=== PATIENT | female | born 1945 | race Caucasian/White ===

== ENCOUNTER → 2023-08-15 06:23 | Day surgery (SDC) | payer OTHER, SELFPAY | LOC: GI 06:23 | PROVIDERS: ATTENDING PHYSICIAN Specialist | DX: Z12.11 Encounter for screening for malignant neoplasm of colon (principal); D12.3 Benign neoplasm of transverse colon; K57.30 Diverticulosis of large intestine without perforation or abscess without bleeding; K64.8 Other hemorrhoids; Z86.010 Personal history of colon polyps | CPT/HCPCS: 45385; 88305 ==

== ENCOUNTER 2023-10-24 16:57 | Inpatient (IN) | payer OTHER, SELFPAY ==
[2023-10-24] VITALS (15 sets, daily range): BP systolic 143–188; BP diastolic 81–100; BMI 23.7; BMI 23.1; BMI 24.5
--- NOTE | 2023-10-24 11:36 | ED.GENMED ---
History of Present Illness
General
Chief Complaint: Chest Pain
Time Seen by Provider: 10/24/23 11:34
Travel History
Have you had any contact with someone who has COVID-19?: No
Do you have any symptoms of coronavirus? Fever > 100 degrees, chills, cough, shortness of breath, sore throat, loss of taste or smell, muscle aches, or headache?: No
History of Present Illness
History of Present Illness:
HPI: Patient presents with 'indigestion' ongoing intermittently for the past 4 days. Although the symptoms are not necessarily exertional in nature, at times I do wake her from sleep and it sometimes 'stops me in my tracks' because of the severity.
She states the pain radiates out toward the upper extremities. Her daughter thinks she is on medication for indigestion. She was also placed on some indigestion kind of medication 2 days ago by the PMD. She states that the EKG from the PMD 2
days ago was unremarkable. She had been seeing Dr. Nicole.
EXAM:
GENERAL: Well appearing in no distress
HEENT: Moist oral mucosa
CARDIOVASCULAR: No murmurs, normal heart rate, regular rhythm, No chest wall tenderness
PULMONARY: No respiratory distress, breath sounds are clear and equal
ABDOMEN: Soft with no peritoneal signs, no tenderness
NEUROLOGIC: Excellent strength all extremities, no coordination deficits
PSYCHIATRIC: Appropriate mental status, normal insight and judgement
EXTREMITIES: Nontender, no edema, moves all extremities equally
SKIN: No rash, no lesions
TIME OF INITIAL ENCOUNTER: 12pm
NUMBER AND COMPLEXITY OF PROBLEMS ADDRESSED AT THE ENCOUNTER
� Chronic conditions affecting care: GERD, asthma, rheumatoid arthritis
� Acute Exacerbation and/or Progression of Chronic Illness: This is an acute problem
� Differential Diagnosis includes: GERD, gastritis, esophagitis, ACS
AMOUNT AND/OR COMPLEXITY OF DATA TO BE REVIEWED AND ANALYZED
� I performed an independent evaluation of and my interpretation is:
EKG: Sinus 74, biphasic T waves noted in V2 and there is T wave inversion in aVL, along with subtle ST depression in V4 V5 first-degree AV block�this is somewhat changed in comparison to 07/19/2015
CT:
X-rays: I personally viewed chest x-ray but doubt a true acute pulmonary etiology
Laboratory Studies: CBC normal, chemistries unremarkable, but troponin 0.286
Other:
� Review of other/old records: I reviewed stress nuclear from 04/04/2018 that showed EF of 65% and no evidence for ischemia
� Clinical information was obtained by an independent historian: I spoke to daughter at bedside
� Prescriptions/Medications Considered but not given:
� Further testing considered but not performed:
RISK OF COMPLICATIONS AND/OR MORBIDITY OR MORTALITY OF PATIENT MANAGEMENT
� Social determinants of health affecting care: Lives at home
� Discussion with other providers: Not[facility] Dr[facility] Kevin at 1:20 PM�[facility]23 [facility]
� Escalation of care including admission/observation vs risk of discharge considered: The patient has a slightly abnormal EKG with new ST depression which is subtle. I have placed patient on heparin and aspirin. She currently
is chest pain-free. Cardiology will see in consultation.
Past History
Past History
ED Past Medical History: GERD, HTN, Hypercholesterolemia and Other (Rheumatoid arthritis)
Social History
Tobacco: Non-smoker
Phy Exam
Physical Exam
Physical Exam:
See HPI
Scores
Heart Score for Chest Pain Patients
STEMI patient?: Not applicable
Course
Orders/Labs/Results
Orders:
Orders
10/24/23 11:03
Electrocardiogram (*1) Urgent
Reason for Study: Chest Pain
EKG- Treatment ONCE
10/24/23 12:03
CR Chest - 2 Views Urgent
Comment:
Reason For Exam: cp
10/24/23 12:10
Complete Blood Count/With Diff Urgent
Comprehensive Metabolic Panel Urgent
Lipase Urgent
PTT Urgent
Prothrombin Time Urgent
Troponin I Urgent
10/24/23 13:16
Aspirin 325 mg PO NOW STA
Heparin 4,000 units IV NOW STA
Pharmacy Request to Place See Dose Instructions PO NOW STA
Discontinue all Active Warfarin orders?: Yes
10/24/23 13:[address] Non Medication Order As Directed
Physician Order: PTT 6 hours after initial start of Heparin infusion
10/24/23 13:30
Heparin 10970 Units/250 ml 25,000 units in 250 ml IV PER PROTOCOL
Weight to be used for heparin protocol in kilograms (kg):: 72.7
Protocol:: Cardiac Tx/Acute Coronary
PTT Goal Range to be used:: PTT 73 to 111 seconds
Order type:: Initial
INITIAL Infusion Dose (UNITS/KG/hr) & then follow protocol:: 12 units/kg/hr
Infusion Dose in UNITS/hr & then follow protocol (UNITS/hr):: 850
INFUSION RATE in mL/hr & then follow protocol (mL/hr):: 8.5
PTT less than or equal to 64 seconds:: Increase rate by 200 units/hr (+ 2 mL/hr)
PTT 64.1 to 72.9 seconds:: Increase rate by 100 units/hr (+ 1 mL/hr)
PTT 73 to 111 seconds:: Target Range. No change in rate.
PTT 111.1 to 130.9 seconds:: Decrease rate by 100 units/hr (- 1 mL/hr)
PTT 131 to 199.9 seconds:: HOLD for 1 hr. Then decrease rate by 200 units/hr (- 2 mL/hr)
PTT greater than or equal to 200 seconds:: HOLD for 2 hrs & Notify Provider. Then decrease by 200 units/hr (-
2 mL/hr)
Lab follow-up:: Each change, PTT q6h until 2 consecutive are therapeutic. Then PTT
daily.
Abnormal Lab Results
10/24/23
12:10
Glucose 103 H mg/dl
(70-99)
Troponin I 0.286 H* ng/ml
10/24/23 12:10
10/24/23 12:10
Vital Signs
Initial and Last Documented VS:
Initial Vital Signs
Temp Pulse Resp BP Pulse Ox
98.6 F 85 18 186/98 97
10/24/23 11:01 10/24/23 11:01 10/24/23 11:01 10/24/23 11:01 10/24/23 11:01
Last Documented Vital Signs
Temp Pulse Resp BP Pulse Ox
98.6 F 76 19 173/91 97
10/24/23 11:01 10/24/23 13:00 10/24/23 13:00 10/24/23 12:02 10/24/23 11:58
*Critical Care Note
Total Time (30-74mins, 75-104mins- exclusive of procedures): Not Applicable
ED Attending Note
-
Portions of this chart may have been created with voice recognition software.� Occasional wrong word or��sound alike� substitutions may have occurred due to the inherent limitations of voice recognition software.
Discharge Plan
Departure
Patient Disposition: Admit
Date of Disposition: 10/24/23
Time of Disposition: 13:23
Presentation/result/management discussed w/ accepting MD/DO: Hospitalist
Discharge Problem:
ACS (acute coronary syndrome)
Prescriptions:
No Action
ibuprofen 200 MG tablet
200 mg PO BIDPRN PRN (Reason: mild pain)
hydroxychloroquine 200 MG tablet
200 mg PO DAILY
cinnamon bark [Cinnamon] 500 MG capsule
1,000 mg PO DAILY
[place]-3 Plus Vitamin D3 1 EACH capsule,delayed release(DR/EC)
2,000 mg PO BID
Curcumin
750 mg PO DAILY
Silver Hydrosol
1 cap PO DAILY
metoprolol succinate [Toprol XL] 50 mg Tablet Extended Release 24 Hr
50 mg PO DAILY
famotidine [Pepcid] 20 mg Tablet
20 mg PO BID
omeprazole 20 mg Tablet,Delayed Release (Dr/Ec)
20 mg PO DAILY
simvastatin 20 MG tablet
20 mg PO DAILY
Referrals:
Cecille Sampson DO [Family Provider] -
Interventions
Interventions:
*Risk Screen - Suicide Last Done: 10/24/23 11:01
*General Assessment Last Done: 10/24/23 11:01
*Neglect/Abuse Screening Last Done: 10/24/23 11:01
ED- Fall Risk Assessment Last Done: 10/24/23 11:58
*ED COVID-19 Vaccine History Last Done: 10/24/23 11:01
ED- Cardiac Assessment Last Done: 10/24/23 11:58
Discharge Date and Time
Print Language: SPANISH
[2023-10-24 12:24] LABS: % Basophils 0.8 % (0-2); % Eosinophils 2.3 % (0-6); % Immature Granulocytes 0.2 % (0-0.5); % Lymphocytes 30.9 % (20.5-51.1); % Monocytes 8.7 % (1.7-9.3); % Neutrophils 57.1 % (42.2-75.2); Absolute Basophils 0.1 10^3/uL (0-0.2); Absolute Eosinophils 0.2 10^3/uL (0-0.7); Absolute Monocytes 0.6 10^3/uL (0.1-0.6); Absolute Neutrophils 3.7 10^3/uL (1.4-6.5); Hemoglobin 14.6 g/dL (12.0-16.0); Mean Corpuscular Hgb 29.7 pg (27.0-31.0); Mean Corpuscular Volume 87.6 fL (81.0-99.0); Mean Platelet Volume 10.4 fL (7.4-10.4); Nucleated Red Blood Cells % 0 %; Platelet Count 207 10^3/uL (130-400); Red Blood Cell Count 4.91 10^6/uL (4.20-5.40); Red Cell Dist. Width 14.3 % (11.5-14.5); White Blood Cell Count 6.4 10^3/uL (4.8-10.8)
[2023-10-24 12:44] LABS: ALT (SGPT) 30 U/L (0-35); AST (SGOT) 36 U/L (14-36); Albumin 3.8 g/dl (3.5-5.0); Alkaline Phosphatase 71 U/L (38-126); Blood Urea Nitrogen 14 mg/dl (7-17); Calcium 9.7 mg/dl (8.4-10.2); Carbon Dioxide 29 mmol/L (22-30); Chloride 105 mmol/L (98-107); Estimated Creatinine Clearance 78 ml/min; Glucose 103 mg/dl (70-99); Lipase 205 U/L (23-300); Potassium 4.1 mmol/L (3.5-5.1); Sodium 136 mmol/L (135-145); Total Bilirubin 0.3 mg/dl (0.2-1.3); Total Protein 7.1 g/dl (6.3-8.2); eGFR > 60.00
[2023-10-24 13:14] LABS: Troponin I 0.286 ng/ml
[2023-10-24] MEDS: ASPIRIN 325 MG PO (13:36)
[2023-10-24] MEDS: HEPARIN 4000 UNITS IV (13:39)
[2023-10-24] MEDS: HEPARIN 25000 UNITS/250 ML IV (13:41)
[2023-10-24 13:47] LABS: INR 0.99; PT 13.1 Sec (11.4-14.6)
[2023-10-24 13:49] LABS: APTT 27.3 Sec (23.4-35.0)
--- NOTE | 2023-10-24 14:37 | CON.CAR ---
Addendum entered and electronically signed by Leoncio Kevin MD 10/24/23 15:37:
I saw and examined the patient.
The [employer]'s note was reviewed and I agree with the note.
Comment: 78 y/o female with palpitations/PAC's, GERD, asthma, dyslipidemia, RA who is here for evaluation of chest discomfort. Stress echo 2016 felt to have mild CAD, but then nuclear stress test 2018 showed no significant abnormality. She is here
with typical anginal symptoms and elevated troponin consistent with NSTEMI.
-Aspirin, heparin drip, high intensity statin, blood pressure control, TTE
Original Note:
Consultation
Consultation Request
Date/Time Consultation Requested: 10/24/23 1323
Date/Time Consultation Performed: 10/24/23 1430
Requesting Provider: Dr. Stapleton
Performing Provider: Caroline OCHOA for Dr. Kevin
Reason for Consultation: Chest discomfort, abnormal troponin
Medical History
-
Chief Complaint: chest discomfort
History of Present Illness:
78 y/o female with palpitations/PAC's, GERD, asthma, dyslipidemia, RA who is here for evaluation of chest discomfort. Stress echo 2016 felt to have mild CAD, but then nuclear stress test 2018 showed no significant abnormality. She has noted
midsternal chest tightness intermittently since Saturday. It seems random and usually lasts < 1 minute and is associated with SOB. This Am, she went for a walk and it became severe and she had to stop. This was around 11 AM. She came into the ER and
is seen to have abnormal troponin 0.286 and EKG with mild ST abnormalities anteriorly. No CP at the time of my assessment. She has received ASA and is on heparin drip. She saw her primary provider earlier this week and was started on BID pepcid,
which did not help.
Past Medical History
Past Medical History: Arrhythmias, Asthma, GERD, Hypercholesterolemia and Other (RA)
Social History
Tobacco: Former Smoker (quit 1975)
Alcohol: Occasional
Family History
Family History: Reviewed & Not Pertinent
Allergies / Home Medications
Allergy/AdvReac Type Severity Reaction Status Date / Time
mold Allergy Shortness Uncoded 10/24/23 11:03
of Breath
�Medication �Instructions �Recorded �Confirmed �Type
Curcumin 750 mg PO DAILY 07/25/15 10/24/23 History
Silver Hydrosol 1 cap PO DAILY 07/25/15 10/24/23 History
cinnamon bark 500 mg capsule 1,000 mg PO DAILY 07/25/15 10/24/23 History
(Cinnamon)
hydroxychloroquine 200 mg tablet 200 mg PO DAILY 07/25/15 10/24/23 History
ibuprofen 200 mg tablet 200 mg PO BIDPRN PRN mild pain 07/25/15 10/24/23 History
omega-3 150 as-owo-ise-fish oil 2,000 mg PO BID 07/25/15 10/24/23 History
500 mg-D3 200 unit capsule,delayed
rel ([place]-3 Plus Vitamin D3)
simvastatin 20 mg tablet 20 mg PO DAILY 07/25/15 10/24/23 History
famotidine 20 mg tablet (Pepcid) 20 mg PO BID 10/24/23 10/24/23 History
metoprolol succinate 50 mg 50 mg PO DAILY 10/24/23 10/24/23 History
tablet,extended release 24 hr
(Toprol XL)
omeprazole 20 mg tablet,delayed 20 mg PO DAILY 10/24/23 10/24/23 History
release
Review of Systems
-
History Source: Patient
All other systems: Negative unless noted
Respiratory: Trouble Breathing
Cardiac: Chest Pain
Physical Exam
Vital Signs
Temp Pulse Resp BP Pulse Ox
98.6 F 76 19 173/91 97
10/24/23 11:01 10/24/23 13:00 10/24/23 13:00 10/24/23 12:02 10/24/23 11:58
Lab Results
10/24/23 12:10
10/24/23 12:10
Troponin I 0.286 ng/ml H* 10/24/23 12:10
Physical Exam
General: Well Developed, Well Nourished and No Apparent Distress
HEENT: Normocephalic and Anicteric
Respiratory: Clear and Non Labored Respirations
Cardiac: Regular Rhythm
Skin: Warm and Dry
Neuro: AO x 3
Psych: Calm
Impression / Plan
-
NSTEMI:
-ASA, heparin drip- continue- this requires intensive monitoring for toxicity
-trend trops, EKG's
-check echo
-will give her metoprolol now as she did not yet take this AM (per patient)
-cardiac cath tomorrow
-high intensity statin
-check lipids, hgbA1C
HLD:
-check lipids
-high intensity statin
Palpitations/PAC's:
-continue metoprolol
-follow tele
Rheumatoid arthritis:
-on medical therapy
GERD:
-on H2 josette
Data Reviewed
-
EKG: Tracing Personally Visualized and interpreted (SR at 74 BPM with SR with SA and 1st degree AVB, NS ST and T abnormality)
Radiology: Report Reviewed by me (CXR: On the frontal view, there is a small focus of increased opacity projecting over the lateral aspect of the left lower lung, which appears new since radiograph in 2001. )
Medical Tests (Nuc Med, Echo etc): Report Reviewed by me (echo 07/05/2015: Normal biventricular size and systolic function without regional wall motion abnormality. Mild mitral regurgitation. Aortic sclerosis without stenosis.)
Labs: Labs Reviewed by me
--- NOTE | 2023-10-24 16:50 | HPS.HSE ---
Family Physician
-
Family Physician: Cecille Sampson
Chief Complaint
-
Chest pain
History of Present Illness
Patient is 78 years old with medical history of palpitations, GERD, asthma, rheumatoid arthritis who presents with chest discomfort. Patient describes intermittent chest pressure like sensation radiating to the right shoulder and right jaw. She
noticed worsening of symptoms today with walk. She denies any palpitations or syncope. Pressure-like sensation last for about a minute and associated with shortness of breath. Upon presentation to the emergency room patient was found to have
positive troponin at 0.286. Her ECG showed mild ST depressions in anterior leads.
Patient had a evaluation with stress test in 2016 with concern for mild CAD, but following nuclear stress test in 2018 showed no significant abnormalities.
Patient initiated on aspirin and IV heparin drip.
By the time of my examination patient is chest pain-free and remains hemodynamically stable.
Medical History
Past Medical History
Past Medical History: Reports GERD, HTN and Other (RA)
Past Surgical History: Reports None
Social History
Tobacco: Non-smoker
Alcohol: None
Drug: None
Living: With Family
Employment: Retired
Family History
Family History: Not pertinent
Allergies / Home Medications
Allergies reflects when Allergies were last updated in [facility].
Home Medications with original date entered in [facility]
Allergy/Medication List:
Allergies
Allergy/AdvReac Type Severity Reaction Status Date / Time
mold Allergy Shortness Uncoded 10/24/23 11:03
of Breath
Home Medications
Curcumin 750 mg PO DAILY 07/25/15
Silver Hydrosol 1 cap PO DAILY 07/25/15
cinnamon bark 500 mg capsule (Cinnamon) 1,000 mg PO DAILY 07/25/15
hydroxychloroquine 200 mg tablet 200 mg PO DAILY 07/25/15
ibuprofen 200 mg tablet 200 mg PO BIDPRN PRN mild pain 07/25/15
omega-3 150 dz-xvm-fmb-fish oil 500 mg-D3 200 unit capsule,delayed rel ([place]-3 Plus Vitamin D3) 2,000 mg PO BID 07/25/15
simvastatin 20 mg tablet 20 mg PO DAILY 07/25/15
famotidine 20 mg tablet (Pepcid) 20 mg PO BID 10/24/23
metoprolol succinate 50 mg tablet,extended release 24 hr (Toprol XL) 50 mg PO DAILY 10/24/23
omeprazole 20 mg tablet,delayed release 20 mg PO DAILY 10/24/23
Review of Systems
-
A 12 point ROS was completed and negative except as noted: Yes
Cardiac: Reports See HPI
Physical Exam
Vital Signs
Vital Signs
Temp Pulse Resp BP Pulse Ox
98.6 F 71 25 180/97 97
10/24/23 11:01 10/24/23 15:15 10/24/23 15:15 10/24/23 15:00 10/24/23 11:58
Physical Exam
General: Well Developed, Well Nourished and No Apparent Distress
HEENT: NormoCephalic, Moist mucous membranes and Atraumatic
Respiratory: Clear
Cardiac: S1/S2 and Regular Rhythm; No Murmur or Rub
GI: Soft, Non Tender, Non Distended and Normal Bowel Sounds; No Organomegaly
Rectal: Deferred by Provider
Musculoskeletal: No Clubbing, No Cyanosis and No Edema
Skin: No Rash
Neuro: Nonfocal/grossly intact
Laboratory Results
-
10/24/23 12:10
10/24/23 12:10
Laboratory Results
PT 13.1 Sec (11.4-14.6) 10/24/23 12:10
INR 0.99 10/24/23 12:10
APTT 27.3 Sec (23.4-35.0) 10/24/23 12:10
Total Bilirubin 0.3 mg/dl (0.2-1.3) 10/24/23 12:10
AST 36 U/L (14-36) 10/24/23 12:10
ALT 30 U/L (0-35) 10/24/23 12:10
Alkaline Phosphatase 71 U/L (38-126) 10/24/23 12:10
Troponin I 0.286 ng/ml H* 10/24/23 12:10
Lipase 205 U/L (23-300) 10/24/23 12:10
Data Reviewed
-
Lab Data: Labs Reviewed by me
Impression/Plan
-
IMPRESSION:
Presentation with exertional chest pain
Acute coronary syndrome/non-STEMI
Conditions prior to admission:
Hypertension
Dyslipidemia
GERD.
Rheumatoid arthritis
PLAN:
Non-STEMI.
Echocardiogram.
Serial troponins.
Cardiology consultation.
Aspirin.
Statin.
Beta-josette.
Cardiac cath on 10/24
Dyslipidemia
Update lipid profile
Continue statin
Essential hypertension
Monitor blood pressure while on Toprol.
Rheumatoid arthritis.
Continue Plaquenil
GERD continue PPI and H2 josette.
[2023-10-24] MEDS: TOPROL XL 50 MG PO (17:55)
[2023-10-24 18:26] LABS: Troponin I 0.374 ng/ml
[2023-10-24] MEDS: CRESTOR 40 MG PO (20:31)
[2023-10-24 21:00] LABS: APTT 102.7 Sec (23.4-35.0)
--- NOTE | 2023-10-24 23:00 | PTCARENOTE ---
Received patient from ED. NSR. AOx3. Hypertensive, received PO toprol in ED. Heparin gtt per protocol. Denies pain. Troponin to be drawn. Assessment per nursing flowsheet. NPO after midnight for CCL tomorrow.
[2023-10-24] MEDS: PEPCID 20 MG PO (23:09)
[2023-10-25] VITALS (10 sets, daily range): BP systolic 117–160; BP diastolic 66–95
[2023-10-25 00:33] LABS: Troponin I 0.429 ng/ml
[2023-10-25 04:41] LABS: APTT 83.9 Sec (23.4-35.0)
[2023-10-25 05:09] LABS: HDL Cholesterol 97 mg/dl; LDL Cholesterol, Calculated 68 mg/dl; Total Cholesterol 185 mg/dl (50-199); Triglyceride 102 mg/dl (10-149); Very Low Density Lipoprotein 20 mg/dl (0-30)
[2023-10-25 05:14] LABS: Troponin I 0.446 ng/ml
[2023-10-25 08:53] LABS: Glycohemoglobin (HgbA1c) 5.7 % (4.0-5.6)
[2023-10-25] MEDS: PROTONIX 40 MG PO (09:01)
[2023-10-25] MEDS: TOPROL XL 50 MG PO (09:01)
[2023-10-25] MEDS: LOW STRENGTH ASPIRIN 81 MG PO (09:01)
[2023-10-25] MEDS: PEPCID 20 MG PO ×2 (09:01→19:56)
[2023-10-25] MEDS: PLAQUENIL 200 MG PO (09:01)
--- NOTE | 2023-10-25 09:23 | PTCARENOTE ---
recived patient in bed. IV heparin @ 850units/hr via left ac. monitor shows NSR with first degree. VSS. patient remains NPO for heart cath today.
--- NOTE | 2023-10-25 10:18 | PTCARENOTE ---
report given to cathead worker.
[2023-10-25 10:41] LABS: Troponin I 0.337 ng/ml
--- NOTE | 2023-10-25 11:07 | CONSULT.CT ---
Consultation
-
Date/Time Consultation Requested: 10/24 1100
Date/Time Consultation Performed: 10/24 1106
Requesting Provider: Kaya MARTINEZ
Performing Provider: Awilda Mccarty MD
Reason for Consultation: CABG
Patient History
Physicians
Family Physician: Cecille Sampson
Outpatient Restorative Coordinator: Corey -> Dorita
Inpatient Restorative Coordinator: Kaya
History of Present Illness
78-year-old female with past medical history of palpitations, GERD, asthma, rheumatoid arthritis presented to [place] emergency room with chest discomfort on 10/23. She states that the chest pressure was radiating to her right shoulder and jaw.
She noticed that the chest pressure was worsening with activity therefore she came to the emergency room. While in the emergency room she was found to have elevated troponins and her EKG showed ST depressions in anterior leads. She had a history
of an abnormal stress test in 2015 but a following nuclear stress test did not show significant abnormalities. So the patient ruled in for a NSTEMI and was started on aspirin and IV heparin infusion. Today the patient was taken to the cardiac Cath
Lab in which multivessel disease was found. CT surgery was consulted for surgical evaluation.
Past Medical History
Past Medical History: Other
Rheumatoid arthritis
Hypertension
GERD
Past Surgical History
Past Surgical History: Other (bone spur)
Dental History
Tooth extractions
Family History
Mother: N/A
Father: N/A
Family Medical History: CAD (Brother)
Social History
Alcohol: Occasional
Drug: None
Tobacco: Former Smoker (quit in 1974)
Living: With Family
Employment: Retired
Allergies
Allergy/AdvReac Type Severity Reaction Status Date / Time
mold Allergy Shortness Uncoded 10/24/23 11:03
of Breath
Home Medications
�Medication �Instructions �Recorded �Confirmed �Type
Curcumin 750 mg PO DAILY 07/25/15 10/24/23 History
Silver Hydrosol 1 cap PO DAILY 07/25/15 10/24/23 History
cinnamon bark 500 mg capsule 1,000 mg PO DAILY 07/25/15 10/24/23 History
(Cinnamon)
hydroxychloroquine 200 mg tablet 200 mg PO DAILY 07/25/15 10/24/23 History
ibuprofen 200 mg tablet 200 mg PO BIDPRN PRN mild pain 07/25/15 10/24/23 History
omega-3 150 ea-zex-otc-fish oil 2,000 mg PO BID 07/25/15 10/24/23 History
500 mg-D3 200 unit capsule,delayed
rel ([place]-3 Plus Vitamin D3)
simvastatin 20 mg tablet 20 mg PO DAILY 07/25/15 10/24/23 History
famotidine 20 mg tablet (Pepcid) 20 mg PO BID 10/24/23 10/24/23 History
metoprolol succinate 50 mg 50 mg PO DAILY 10/24/23 10/24/23 History
tablet,extended release 24 hr
(Toprol XL)
omeprazole 20 mg tablet,delayed 20 mg PO DAILY 10/24/23 10/24/23 History
release
Review of Systems
-
History Source: Patient
General: Reports No Symptoms
HEENT: Reports No Symptoms
Respiratory: Reports SOB
Cardiac: Reports Chest Pain and CAD
Abdomen/GI: Reports Reflux
: Reports No Symptoms
Musculoskeletal: Reports No Symptoms
Skin: Reports No Symptoms
Neurological: Reports No Symptoms
Vascular: Reports No Symptoms
Physical Exam
Vital Signs
Temp 98.2 F 10/25/23 06:51
Temp route: Oral 10/25/23 06:51
Pulse 74 10/25/23 10:00
Rhythm: Normal sinus rhythm 10/25/23 08:30
With- First Degree Heart Block 10/25/23 08:30
Resp Rate 18 10/25/23 04:33
Blood pressure 152/70 10/25/23 09:01
Blood pressure extremity used: Right upper arm 10/25/23 06:51
Position: Lying 10/25/23 06:51
MAP (cuff-Tommie Monitor) 94 10/25/23 06:53
SaO2 96 10/25/23 08:30
Oxygen Mode of Delivery Room air 10/25/23 08:30
Can the patient verbally communicate their pain? Yes 10/25/23 08:30
Actual Weight 71 kg 10/24/23 23:23
Body Mass Index (BMI) 24.5 10/24/23 23:23
Labs
10/24/23 12:10
10/24/23 12:10
PT 13.1 Sec (11.4-14.6) 10/24/23 12:10
APTT 83.9 Sec (23.4-35.0) H 10/25/23 04:11
Hemoglobin A1c 5.7 % (4.0-5.6) H 10/25/23 04:11
Troponin I 0.337 ng/ml H* 10/25/23 09:57
Exam
General: Well Developed, Well Nourished and No Apparent Distress
HEENT: Normocephalic
Respiratory: Clear
Cardiac: S1/S2 and Regular Rhythm
GI: Soft and Non Tender
Rectal: Deferred by Provider
Skin: Warm and Dry
Neuro: AO x 3
Lymph: No Lymphadenopathy
Psych: Calm
Assessment / Plan
-
78-year-old female with past medical history listed above presented to [facility] with chest pressure, ruled in for a NSTEMI. Left heart cath revealed multivessel disease and CT surgery was consulted.
#CAD
-Patient's case will be discussed with attending physician. Further details regarding surgical timing intervention will be determined after attending physicians full evaluation.
-Routine preoperative cardiothoracic surgery orders will be initiated.
-STS risk stratification score will be calculated after preoperative testing is complete
-Continue heparin drip
�Continue to monitor for chest pain; may need nitro drip if chest pain reoccurs
--- NOTE | 2023-10-25 11:39 | PTCARENOTE ---
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 patient is pain free. CVPA in room talking with patient and daughters. IVF @ 107 cc hr for 3 hours as ordered. will resume IV heparin gtt. at
1600 as ordered.
[2023-10-25] MEDS: NITRO-BID 0.5 INCH TOPICAL ×2 (11:53→17:30)
--- NOTE | 2023-10-25 13:47 | W.PN.HOSP.TC ---
Today's Communication/Plan
-
Non-ST elevation GA with troponin peak 0.4.
Cardiac catheterization with multivessel disease.
CT surgery evaluation.
Assessment / Plan
Assessment / Plan
IMPRESSION:
Presentation with exertional chest pain
Acute coronary syndrome/non-STEMI
Conditions prior to admission:
Hypertension
Dyslipidemia
GERD.
Rheumatoid arthritis
PLAN:
Non-STEMI. Troponin peak at 0.4
Echocardiogram left ventricular function at 55-60% stage I diastolic dysfunction. No regional wall motion abnormalities
[facility] 10/24 preliminary report with multivessel disease
CT surgery consultation
Aspirin.
Statin.
Beta-josette.
Dyslipidemia
LDL 68
Continue statin
Essential hypertension
Monitor blood pressure while on Toprol.
Rheumatoid arthritis.
Continue Plaquenil
GERD continue PPI and H2 josette.
Anticipated Discharge: > 48 hours
Subjective/Interval History
-
Date of Service: October 25, 2023
Objective Data
-
Labs:
Laboratory Results
10/25/23
04:11
APTT 83.9 H
Vital Signs:
Vital Signs
Temp Pulse Resp BP Pulse Ox
97.1 F 61 20 145/74 97
10/25/23 12:29 10/25/23 12:00 10/25/23 12:29 10/25/23 11:53 10/25/23 12:29
I&O
10/24/23 10/25/23 10/26/23
06:59 06:59 06:59
Intake Total 51 / 51
Balance 51 / 51
Physical Exam
-
General: Well Developed and No Apparent Distress
HEENT: Normocephalic, Atraumatic and Moist Mucous Membranes
Respiratory: Clear to Auscultation
Cardiac: Regular Rhythm and S1/S2; Negative Murmur, Rub or Gallop
GI: Soft, Nontender, Nondistended and Normal Bowel Sounds; Negative Organomegaly
Rectal: Deferred by Provider
Musculoskeletal: No Clubbing, No Cyanosis and No Edema
Skin: Negative Rash
Neuro: Nonfocal/Grossly Intact
--- NOTE | 2023-10-25 13:59 | ITS.CL.CATH ---
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
Cardiac Catheterization
Procedure Report:
CARDIAC CATHETERIZATION REPORT
Date of Procedure: 10/25/2023
Referring: Leoncio Kevin MD
Indication: ACS/non-STEMI
HEMODYNAMIC DATA
AO: 169/76
LV: 169/18
LEFT VENTRICULOGRAPHY: Normal left ventricular wall motion with EF 67%
CORONARY ANGIOGRAPHY
Dominance: Right
Left Main: Normal
LAD: 90% ostial LAD stenosis with the angiographic appearance of thrombus. There is RAKESH grade III flow in the LAD. The mid LAD has 60% stenosis just distal to D3. The distal LAD has 40-50% stenosis spanning D4 takeoff
Circumflex: Trivial luminal irregularities
RCA: Dominant vessel with 20% mid stenosis and otherwise trivial luminal irregularities in the RCA proper. The medium to large PDA has 30% ostial stenosis.
Closure Device: None-the procedure was performed via the right radial artery
Radiation (mGy): 151
DAP (cm2.Gy): 13.6
Fluoroscopy time: 1.5-minute
CONCLUSIONS
1: Systemic hypertension
2: Normal left ventricular function with EF 67%
3. Severe single-vessel LAD disease as described. The culprit for her ACS is clearly the ostial LAD lesion. This lesion is quite unfavorable for PCI which would require stenting back into the left main across the origin of the circumflex.
Furthermore there is a borderline significant lesion in the mid LAD.
4. Recommend CT surgical consultation for inpatient CABG x 2 (LAD, D3)
Copy to: Leoncio Kevin MD, Ivanna Sampson DO
Maikol Kirkpatrick MD, [facility], [facility]
--- NOTE | 2023-10-25 14:57 | PTCARENOTE ---
carotid U/S being completed at bedside.
--- NOTE | 2023-10-25 15:12 | W.PN.UPDATE ---
Update Note
Progress Note Update
Procedure Type:�Isolated CABG
PERIOPERATIVE OUTCOME ESTIMATE %
Operative Mortality 1.45%
Morbidity & Mortality 4.46%
Stroke 0.805%
Renal Failure 0.325%
Reoperation 2.04%
Prolonged Ventilation 2.05%
Deep Sternal Wound Infection 0.076%
Long Hospital Stay (>14 days) 2.31%
Short Hospital Stay (<6 days)* 53.7%
Clinical Summary
Planned Surgery: Isolated CABG, Urgent, First cardiovascular surgery
Demographics: 78 year old, female, 71kg, 170cm, BMI: 24.6 kg/m�
Lab Values: Creatinine: 0.6 mg/dL, Hematocrit: 43%, WBC Count: 6.4 10�/�L, Platelet Count: 427961 cells/�L
Substance Abuse: Former smoker, Alcohol use: <=1 drink/week
Risk Factors / Comorbidities: Hypertension, Family Hx of CAD
Cardiac Status: Ejection Fraction = 55%
Coronary Artery Disease: 1 vessel diseased, Proximal LAD Stenosis >=70%, Non-ST Elevation DE, DE: 1 to 7 Days
Valve Disease: Mild MR, Trivial/Trace TR
--- NOTE | 2023-10-25 16:03 | CM ---
Chart review. Patient is independent of ADLS, lives alone in a 1 STH, 1 SUSAN, 0 DME. Patient with supportive daughters who live close. Reviewed preoperative and postoperative instructions and restrictions, along with showering guidelines.
Patient is agreeable to a visit by CT Transitional RN. Gave patient CT Surgery Book. Plan is for the patient to go home with CT Transitional RN. CM to follow
--- NOTE | 2023-10-25 16:40 | W.PN.UPDATE ---
Update Note
Progress Note Update
Pt seen and examined
cath reveiwed
Daughter present
Pleasant 78 y/o active female admitted with nstemi
Cath with ostial lad disease and prox lad disease
I agree Lad/diag cabg is good option
Risks, complications, benefits and alternatives reviewed with pt and family
Plan for cabg on Saturday10.28.23
All questions answered
all agreeable to proceed with surgery
[2023-10-25] MEDS: CRESTOR 40 MG PO (17:30)
[2023-10-25] MEDS: HEPARIN 25000 UNITS/250 ML IV ×2 (18:57→22:15)
--- NOTE | 2023-10-25 22:44 | PTCARENOTE ---
Heparin gtt restarted at change of shift- POC discussed pt verbalized understanding. reports 0/10 CP at this time. VSS. NSR w/ first degree on the monitor.
[2023-10-26] VITALS (10 sets, daily range): BP systolic 119–178; BP diastolic 55–96; BMI 24.6
[2023-10-26] MEDS: NITRO-BID 0.5 INCH TOPICAL ×5 (01:13→22:59)
[2023-10-26 01:15] LABS: Mean Corp Hgb Conc. 34.2 g/dL (33.0-37.0); Mean Corpuscular Hgb 29.9 pg (27.0-31.0); Mean Corpuscular Volume 87.4 fL (81.0-99.0); Mean Platelet Volume 9.8 fL (7.4-10.4); Platelet Count 188 10^3/uL (130-400); Red Blood Cell Count 4.35 10^6/uL (4.20-5.40); Red Cell Dist. Width 14.5 % (11.5-14.5); White Blood Cell Count 6.6 10^3/uL (4.8-10.8)
[2023-10-26 01:30] LABS: APTT 63.5 Sec (23.4-35.0)
[2023-10-26 01:59] LABS: Blood Urea Nitrogen 17 mg/dl (7-17); Carbon Dioxide 27 mmol/L (22-30); Chloride 108 mmol/L (98-107); Estimated Creatinine Clearance 73 ml/min; Glucose 97 mg/dl (70-99); HDL Cholesterol 90 mg/dl; LDL Cholesterol, Calculated 47 mg/dl; Potassium 4.2 mmol/L (3.5-5.1); Sodium 134 mmol/L (135-145); Total Cholesterol 162 mg/dl (50-199); Triglyceride 128 mg/dl (10-149); Very Low Density Lipoprotein 25 mg/dl (0-30); eGFR > 60.00
--- NOTE | 2023-10-26 08:00 | W.PN.HOSP.TC ---
Today's Communication/Plan
-
Continue heparin drip, aspirin, statin, beta-josette
Plan for CABG on Friday 10/27
Assessment / Plan
Assessment / Plan
IMPRESSION:
Presentation with exertional chest pain
Acute coronary syndrome/non-STEMI
Conditions prior to admission:
Hypertension
Dyslipidemia
GERD.
Rheumatoid arthritis
PLAN:
Non-STEMI. Troponin peak at 0.4
Echocardiogram left ventricular function at 55-60% stage I diastolic dysfunction. No regional wall motion abnormalities
[facility] 10/24 preliminary report with multivessel disease
CT surgery consultation
Aspirin.
Statin.
Beta-josette.
Dyslipidemia
LDL 68
Continue statin
Essential hypertension
Monitor blood pressure while on Toprol.
Rheumatoid arthritis.
Continue Plaquenil
GERD continue PPI and H2 josette.
Physical Exam
General: No acute distress
HEENT: Normocephalic, Atraumatic, EOMI, MMM
Respiratory: Clear to Auscultation bilaterally
Cardiac: Normal S1/S2, Regular Rate and Rhythm
GI: Soft, Nontender, Nondistended, Normal Bowel Sounds
Extremities: No Clubbing, Cyanosis, or Edema
Neuro: Nonfocal/Grossly Intact
Psych: Calm, Cooperative
Derm: No Visible lesions
Anticipated Discharge: > 48 hours
Subjective/Interval History
-
Date of Service: October 26, 2023
Patient feels well. She denies chest pain, shortness of breath, problems breathing. No fever, no vomiting.
Objective Data
-
Labs:
Laboratory Results
10/26/23 10/26/23 10/26/23
01:00 01:05 08:00
WBC 6.6
Hgb 13.0
Hct 38.0
Plt Count 188
APTT Cancelled 63.5 H Pending
Sodium 134 L
Potassium 4.2
Chloride 108 H
Carbon Dioxide 27
BUN 17
Creatinine 0.6
Glucose 97
Calcium 9.0
10/26/23
09:00
WBC
Hgb
Hct
Plt Count
APTT Cancelled
Sodium
Potassium
Chloride
Carbon Dioxide
BUN
Creatinine
Glucose
Calcium
Vital Signs:
Vital Signs
Temp Pulse Resp BP Pulse Ox
97.6 F 85 18 161/89 97
10/26/23 06:39 10/26/23 07:00 10/26/23 06:39 10/26/23 06:38 10/26/23 06:39
I&O
10/25/23 10/26/23 10/27/23
06:59 06:59 06:59
Intake Total 569.5 / 569.5
Balance 569.5 / 569.5
--- NOTE | 2023-10-26 08:13 | W.PN.CD ---
Today's Communication / Plan
-
-Plan for coronary bypass graft on Saturday
Impression / Plan
-
NSTEMI:
-ASA, heparin drip- continue- this requires intensive monitoring for toxicity
-Cardiac cath 10/25/2023 for NSTEMI: Severe single-vessel LAD disease with ostial LAD lesion�not amenable to intervention due to stenting back into left main across the origin of left circumflex and another mid LAD lesion.
-CT surgery consulted for bypass surgery
-high intensity statin
-Plan for CABG on Saturday
HLD:
-check lipids
-high intensity statin
Palpitations/PAC's:
-continue metoprolol
-follow tele
Rheumatoid arthritis:
-on medical therapy
GERD:
-on H2 josette
Physical Exam
Vital Signs/Labs
Vital Signs
Temp Pulse Resp BP Pulse Ox
97.6 F 85 18 161/89 97
10/26/23 06:39 10/26/23 07:00 10/26/23 06:39 10/26/23 06:38 10/26/23 06:39
10/25/23 10/26/23 10/27/23
06:59 06:59 06:59
Actual Weight 71 kg 71.2 kg
10/26/23 01:05
10/26/23 01:05
PT 13.1 Sec (11.4-14.6) 10/24/23 12:10
INR 0.99 10/24/23 12:10
APTT Cancelled 10/26/23 09:00
Triglycerides 128 mg/dl (10-149) 10/26/23 01:05
LDL Cholesterol, Calc 47 mg/dl 10/26/23 01:05
VLDL Cholesterol, Calc 25 mg/dl (0-30) 10/26/23 01:05
HDL Cholesterol 90 mg/dl 10/26/23 01:05
LAB Results
10/24/23 10/24/23 10/24/23
12:10 17:46 23:21
Troponin I 0.286 H* 0.374 H* D Cancelled
10/24/23 10/25/23 10/25/23
23:56 00:00 04:11
Troponin I 0.429 H* Cancelled 0.446 H*
10/25/23
09:57
Troponin I 0.337 H*
Physical Exam
Constitutional: No acute distress and Comfortable
EENT: Anicteric and Moist mucous membranes
Cardiovascular: Rhythm & rate is regular, Pedal edema is absent and JVD pressure is normal
Respiratory: Respiratory effort normal, Wheeze Absent and Crackles Absent
GI: Soft, Non tender and Normal bowel sounds
Neuro/Psych: Alert, Oriented and AO x 3
Data Reviewed
-
Date of Service: October 26, 2023
Medical Decision Making: Reviewed Test Results, Independent Historian Assessment and Test Interpretation
EKG: Tracing Personally Visualized and interpreted
Echo: Report Reviewed by me
Labs: Labs Reviewed by me
Old Records: Reviewed
[2023-10-26] MEDS: LOW STRENGTH ASPIRIN 81 MG PO (08:29)
[2023-10-26] MEDS: PEPCID 20 MG PO ×2 (08:30→20:42)
[2023-10-26] MEDS: TOPROL XL 50 MG PO (08:30)
[2023-10-26] MEDS: PROTONIX 40 MG PO (08:30)
[2023-10-26] MEDS: PLAQUENIL 200 MG PO (08:30)
[2023-10-26 08:57] LABS: APTT 96.2 Sec (23.4-35.0)
--- NOTE | 2023-10-26 09:48 | PTCARENOTE ---
Received patient this morning sitting oob at [facility] eating her breakfast. IV heparin infusing at 1050 units/hr. PTT repeated per protocol and is therapeutic, will recheck at 1430. Right hand and wrist ecchymotic purple but soft with a strong
radial pulse, dressing is dry and intact. Patient denies any chest pain or sob.
--- NOTE | 2023-10-26 13:51 | W.PN.UPDATE ---
Update Note
Progress Note Update
No events or issues overnight
Continue heparin gtt per Cardiology, management per primary service
Type and Screen in am
Plan for Coronary artery revascularization Saturday10/28/23
[2023-10-26 15:52] LABS: APTT 111.3 Sec (23.4-35.0)
[2023-10-26] MEDS: CRESTOR 40 MG PO (18:19)
--- NOTE | 2023-10-26 21:27 | PTCARENOTE ---
Pt without complaints- heparin gtt running as ordered- R hand dressing CDI- + pulse. ecchy- throughout. POC discussed- pt verbalized understanding. Encouraged IS use. Ambulating the room as a self. Call ribeiro within reach.
[2023-10-26] MEDS: HEPARIN 25000 UNITS/250 ML IV (22:58)
[2023-10-27] VITALS (8 sets, daily range): BP systolic 135–184; BP diastolic 67–87; BMI 24.8
[2023-10-27] MEDS: NITRO-BID 0.5 INCH TOPICAL ×4 (05:08→23:18)
--- NOTE | 2023-10-27 05:15 | W.PN.CT ---
Today's Communication / Plan
-
Plan:
-Cont. current medical management per primary team
-Cont. current meds (ASA, Heparin gtt, Nitro paste, Crestor, Toprol XL; Avoid JUAN ANTONIO-I/ARB's in preparation for OR)
-Ongoing preop workup
-For Off Pump CABG by Dr. Mccarty on Friday 10/27
-Will d/c Heparin gtt and Nitro paste conveyor monitor to OR
-Will cont. to closely monitor
Assessment / Plan
-
Assessment:
-Severe single vessel CAD involving the LAD
-[place]
-NSTEMI (peak trop 0.446)
-Palpitations/PAC's
-LVEF 55-60%
-HTN
-HLD
-Prediabetes (hgb A1C 5.7)
-Former tobacco use (1974)
-Hyponatremia (134)
-S/P bone spur
-S/P teeth extraction
Discussed patient care with: Cardiology, Nursing, Respiratory Therapy, Pharmacy and Care Team
Subjective
-
Date of Service: October 27, 2023
No issues overnight. Denies CP/SOB
Objective Data
-
Lab Results
10/26/23 01:05
10/26/23 01:05
PT 13.1 Sec (11.4-14.6) 10/24/23 12:10
INR 0.99 10/24/23 12:10
APTT 111.3 Sec (23.4-35.0) H 10/26/23 15:18
Vital Signs
Vital Signs
Temp Pulse Resp BP Pulse Ox
97.8 F 69 18 119/83 98
10/26/23 19:45 10/26/23 22:59 10/26/23 19:45 10/26/23 22:59 10/26/23 11:35
CT Intake/Output/Weight
10/26/23 10/26/23 10/27/23
06:59 18:59 06:59
Intake Total 248.5 / 569.5 960 / 960
Balance 248.5 / 569.5 960 / 960
SaO2: 98 (RA)
Physical Exam
-
General: Awake, Oriented and AOx3
Cardiovascular: Regular rate & rhythm, No Murmurs and No Rub
Respiratory: Clear
Extremities: Other (+trace edema)
Data Reviewed
-
Lab Results: Results Reviewed
Medications: Active Meds Reviewed
Chest X-Ray: Report Reviewed and Image Reviewed
ECG: Report Reviewed and Image Reviewed
[2023-10-27] MEDS: LOW STRENGTH ASPIRIN 81 MG PO (08:34)
[2023-10-27] MEDS: PLAQUENIL 200 MG PO (08:35)
[2023-10-27] MEDS: TOPROL XL 50 MG PO (08:35)
[2023-10-27] MEDS: PROTONIX 40 MG PO (08:35)
[2023-10-27] MEDS: PEPCID 20 MG PO ×2 (08:35→21:05)
--- NOTE | 2023-10-27 10:20 | PTCARENOTE ---
Patient oob in her room, daughter in visiting. States she had a good night, no chest pain or sob. For CT surgery tomorrow.
[2023-10-27 13:43] LABS: APTT 81.8 Sec (23.4-35.0)
--- NOTE | 2023-10-27 14:57 | W.PN.HOSP.TC ---
Today's Communication/Plan
-
For CABG tomorrow
Assessment / Plan
Assessment / Plan
IMPRESSION:
Presentation with exertional chest pain
Acute coronary syndrome/non-STEMI
Conditions prior to admission:
Hypertension
Dyslipidemia
GERD.
Rheumatoid arthritis
PLAN:
Non-STEMI. Troponin peak at 0.4
Echocardiogram left ventricular function at 55-60% stage I diastolic dysfunction. No regional wall motion abnormalities
[facility] 10/24 preliminary report with multivessel disease
CT surgery consultation
Aspirin.
Statin.
Beta-josette.
Dyslipidemia
LDL 68
Continue statin
Essential hypertension
Monitor blood pressure while on Toprol.
Rheumatoid arthritis.
Continue Plaquenil
GERD continue PPI and H2 josette.
Physical Exam
General: No acute distress
HEENT: Normocephalic, Atraumatic, EOMI, MMM
Respiratory: Clear to Auscultation bilaterally
Cardiac: Normal S1/S2, Regular Rate and Rhythm
GI: Soft, Nontender, Nondistended, Normal Bowel Sounds
Extremities: No Clubbing, Cyanosis, or Edema
Neuro: Nonfocal/Grossly Intact
Psych: Calm, Cooperative
Derm: No Visible lesions
Anticipated Discharge: > 48 hours
Subjective/Interval History
-
Date of Service: October 27, 2023
No acute events. Patient feels well, no chest pain no shortness of breath. No fever, no vomiting.
Objective Data
-
Labs:
Laboratory Results
10/27/23 10/27/23
05:19 13:17
APTT 149.0 H 81.8 H
Vital Signs:
Vital Signs
Temp Pulse Resp BP Pulse Ox
97.5 F 69 20 164/83 97
10/27/23 10:49 10/27/23 11:00 10/27/23 10:49 10/27/23 10:47 10/27/23 10:49
I&O
10/26/23 10/27/23 10/28/23
06:59 06:59 06:59
Intake Total 569.5 / 569.5 960 / 960 360 / 360
Balance 569.5 / 569.5 960 / 960 360 / 360
--- NOTE | 2023-10-27 16:19 | W.PN.CD ---
Today's Communication / Plan
-
-N.p.o. after midnight plan for CT surgery tomorrow for
Impression / Plan
-
NSTEMI:
-ASA, heparin drip- continue- this requires intensive monitoring for toxicity
-Cardiac cath 10/25/2023 for NSTEMI: Severe single-vessel LAD disease with ostial LAD lesion�not amenable to intervention due to stenting back into left main across the origin of left circumflex and another mid LAD lesion.
-CT surgery consulted for bypass surgery
-high intensity statin
-Plan for CABG on Saturday
HLD:
-check lipids
-high intensity statin
Palpitations/PAC's:
-continue metoprolol
-follow tele
Rheumatoid arthritis:
-on medical therapy
GERD:
-on H2 josette
Physical Exam
Vital Signs/Labs
Vital Signs
Temp Pulse Resp BP Pulse Ox
97.6 F 77 20 135/67 96
10/27/23 15:03 10/27/23 15:01 10/27/23 15:03 10/27/23 15:01 10/27/23 15:03
10/26/23 10/27/23 10/28/23
06:59 06:59 06:59
Actual Weight 71.2 kg 71.9 kg
10/26/23 01:05
10/26/23 01:05
PT 13.1 Sec (11.4-14.6) 10/24/23 12:10
INR 0.99 10/24/23 12:10
APTT 81.8 Sec (23.4-35.0) H 10/27/23 13:17
Triglycerides 128 mg/dl (10-149) 10/26/23 01:05
LDL Cholesterol, Calc 47 mg/dl 10/26/23 01:05
VLDL Cholesterol, Calc 25 mg/dl (0-30) 10/26/23 01:05
HDL Cholesterol 90 mg/dl 10/26/23 01:05
LAB Results
10/24/23 10/24/23 10/24/23
17:46 23:21 23:56
Troponin I 0.374 H* D Cancelled 0.429 H*
10/25/23 10/25/23 10/25/23
00:00 04:11 09:57
Troponin I Cancelled 0.446 H* 0.337 H*
Physical Exam
Constitutional: No acute distress and Comfortable
EENT: Anicteric and Moist mucous membranes
Cardiovascular: Rhythm & rate is regular, Pedal edema is absent and JVD pressure is normal
Respiratory: Respiratory effort normal, Lungs clear to auscul. and Wheeze Absent
GI: Soft and Non tender
Neuro/Psych: Oriented, AO x 3 and Motor deficits absent
Data Reviewed
-
Date of Service: October 27, 2023
Medical Decision Making: Reviewed Test Results and Independent Historian Assessment
EKG: Tracing Personally Visualized and interpreted
Echo: Report Reviewed by me
Labs: Labs Reviewed by me
Old Records: Reviewed
[2023-10-27] MEDS: CRESTOR 40 MG PO (18:17)
[2023-10-27 20:14] LABS: APTT 55.4 Sec (23.4-35.0)
--- NOTE | 2023-10-27 20:48 | PTCARENOTE ---
Rec'd pt from prev nsg shift AAOx3 w/no c/o CP or SOB. Pt w/IV Heparin drip infusing as ordered through patent IV line. Pt SR w/1st deg AV block on telemetry monitoring w/stable VS w/HR in the 80's. Pt's BP mildly elevated, but pt verbally
expressing her anxiety re: upcoming open heart surgery tomm morning. Emotional support provided & plan of care discussed w/pt & pt's daughter. Pt w/call ribeiro within reach & plan of care ongoing.
[2023-10-28] VITALS (9 sets, daily range): BP systolic 88–149; BP diastolic 49–79; BMI 24.4
[2023-10-28 03:36] LABS: Hematocrit 40.1 % (37.0-47.0); Hemoglobin 13.2 g/dL (12.0-16.0); Mean Corp Hgb Conc. 32.9 g/dL (33.0-37.0); Mean Corpuscular Hgb 29.6 pg (27.0-31.0); Mean Corpuscular Volume 89.9 fL (81.0-99.0); Mean Platelet Volume 10.5 fL (7.4-10.4); Platelet Count 185 10^3/uL (130-400); Red Blood Cell Count 4.46 10^6/uL (4.20-5.40); White Blood Cell Count 6.9 10^3/uL (4.8-10.8)
[2023-10-28 03:48] LABS: APTT 85.7 Sec (23.4-35.0)
[2023-10-28 03:58] LABS: Blood Urea Nitrogen 15 mg/dl (7-17); Calcium 9.2 mg/dl (8.4-10.2); Carbon Dioxide 25 mmol/L (22-30); Chloride 107 mmol/L (98-107); Estimated Creatinine Clearance 73 ml/min; Glucose 92 mg/dl (70-99); Potassium 4.4 mmol/L (3.5-5.1); Sodium 137 mmol/L (135-145); eGFR > 60.00
[2023-10-28] MEDS: BACTROBAN 2% OINTMENT 1 APPLIC NASAL ×2 (05:50→19:20)
[2023-10-28] MEDS: LOPRESSOR 25 MG PO (05:50)
[2023-10-28] MEDS: MAGNESIUM OXIDE 500 MG PO (05:50)
[2023-10-28] MEDS: PROTONIX 40 MG PO (05:50)
[2023-10-28] MEDS: NITRO-BID TOPICAL (05:54)
--- NOTE | 2023-10-28 06:13 | PTCARENOTE ---
Pt's VS stable, w/HR in the 70's. Pt prepped for surgery w/2 CHG showers during this shift and CHG wipes completed at 0610. Pt's daughters waiting at bedside w/pt. Telemetry monitoring continued post shower. Pt's personal belongings transferred to
ICU rm [id number]. Awaiting transport to [facility]. Plan of care ongoing.
--- NOTE | 2023-10-28 06:31 | W.CVOR.SURPR ---
CVOR Surgeon Immed Pre Op
-
I have examined this patient prior to performance of the scheduled procedure.
The patient's condition is unchanged from the time of the dictated/written History and
Physical and the patient is able to undergo the scheduled procedure.
[2023-10-28 07:49] LABS: ACT+ - POC 93 Seconds (82-134)
[2023-10-28 07:52] LABS: B.E. - POC -1.5 mmol/L; Glucose - POC 93 mg/dl (65-99); HCO3 - POC 24 mmol/L (21-29); Hematocrit - POC 40 % PCV (37-47); Hemodilution- POC Yes; Hemoglobin Calculated - POC 13.4; O2 Saturation %Calculated-POC 99.9 5 (92-96); PCO2 - POC 42 mmHg (35-45); PO2 - POC 347 mmHg (80-100); Potassium - POC 3.8 mmol/L (3.6-5.0); Sodium - POC 145 mmol/L (135-145); pH - POC 7.37 (7.35-7.45)
[2023-10-28 08:12] LABS: Urine Albumin Negative (Neg - Trace); Urine Bilirubin Negative (Negative); Urine Character Clear (Clear); Urine Color Yellow; Urine Glucose Negative (Negative); Urine Ketone Negative (Negative); Urine Leukocyte Negative (Negative); Urine Nitrite Negative (Negative); Urine Occult Blood Negative (Negative); Urine Urobilinogen Negative (Neg - 1+)
--- NOTE | 2023-10-28 08:35 | W.PN.UPDATE ---
Update Note
Progress Note Update
Patient Undergoing CABG today. Transferred into Cardiothoracic Surgery Service. Hospitalist service signing off. Please re-consult as necessary.
[2023-10-28 09:07] LABS: ACT+ - POC 453 Seconds (82-134)
[2023-10-28 09:26] LABS: B.E. - POC 3.1 mmol/L; Glucose - POC 104 mg/dl (65-99); HCO3 - POC 26 mmol/L (21-29); Hematocrit - POC 27 % PCV (37-47); Hemodilution- POC Yes; Hemoglobin Calculated - POC 9.3; Ionized Calcium - POC 0.98 mmol/L (1.12-1.27); PCO2 - POC 32 mmHg (35-45); PO2 - POC 367 mmHg (80-100); Potassium - POC 4.7 mmol/L (3.6-5.0); Sodium - POC 143 mmol/L (135-145); pH - POC 7.51 (7.35-7.45)
[2023-10-28 09:28] LABS: ACT+ - POC 577 Seconds (82-134)
--- NOTE | 2023-10-28 09:40 | CM ---
Reviewed chart. Mrs. Vizcarra is in the operation room today. Prior to admission she resides alone in a one story home with one step to enter. Prior to admission she was independent with ambulation and adls. She does not have any DME in the
home. She has supportive daughters who reside nearby. Medical work-up in progress. The discharge plan is to return home with a home visit by the Cardiothoracic Transitional Care Nurse when when medically stable.
--- NOTE | 2023-10-28 09:57 | W.PN.CD ---
Today's Communication / Plan
-
CABG today.
Routine postoperative management.
Wean vent to extubate.
Wean pressors/inotropes.
Pain control/chest tubes per CT surgery.
Impression / Plan
-
Impression/Plan: 78 y/o female with RA and HLD admitted with NSTEMI.
#NSTEMI:
-ASA, heparin drip- continue- this requires intensive monitoring for toxicity
-Cardiac cath 10/25/2023 for NSTEMI: Severe single-vessel LAD disease with ostial LAD lesion�not amenable to intervention due to stenting back into left main across the origin of left circumflex and another mid LAD lesion.
-S/P off pump 2V CABG (HOWARD to LAD, SVG to D1) and LAAL (#40 Atriclip).
-Continue metoprolol, aspirin, high dose, high potency statin.
-Routine post operative management.
-Wean vent to extubate.
-Wean pressors/inotropes.
-Pain control/chest tubes per CT surgery.
#HLD:
-Chronic, stable.
-Total cholesterol = 162, LDL = 47, HDL = 90, Triglycerides = 128.
-High dose, high potency statin.
#Palpitations/PAC's:
-Chronic, stable.
-Continue metoprolol
#Rheumatoid arthritis:
-Chronic, stable.
-On medical therapy.
#GERD:
-Chronic, stable.
-On H2 josette.
Subjective/Interval History:
No acute events.
Successful surgery this morning.
DATA:
Cardiac catheterization, 10/25/2023:
CORONARY ANGIOGRAPHY
Dominance: Right
Left Main: Normal
LAD: 90% ostial LAD stenosis with the angiographic appearance of thrombus. There is RAKESH grade III flow in the LAD. The mid LAD has 60% stenosis just distal to D3. The distal LAD has 40-50% stenosis spanning D4 takeoff
Circumflex: Trivial luminal irregularities
RCA: Dominant vessel with 20% mid stenosis and otherwise trivial luminal irregularities in the RCA proper. The medium to large PDA has 30% ostial stenosis.
CONCLUSIONS
1: Systemic hypertension
2: Normal left ventricular function with EF 67%
3. Severe single-vessel LAD disease as described. The culprit for her ACS is clearly the ostial LAD lesion. This lesion is quite unfavorable for PCI which would require stenting back into the left main across the origin of the circumflex.
Furthermore there is a borderline significant lesion in the mid LAD.
4. Recommend CT surgical consultation for inpatient CABG x 2 (LAD, D3)
TTE, 10/24/2023:
CONCLUSIONS
Normal left ventricular size, wall thickness and systolic function. No regional
wall motion abnormalities are seen. LV ejection fraction is 55-60% by
volumetric assessment. Stage I diastolic dysfunction suggestive of abnormal
relaxation.
Normal right ventricular size and function.
Mild mitral regurgitation.
Compared to prior from January 14, 2017, no significant change.
Physical Exam
Vital Signs/Labs
Vital Signs
Temp Pulse Resp BP Pulse Ox
37.0 C 70 20 149/79 98
10/28/23 03:20 10/28/23 03:05 10/28/23 03:20 10/28/23 03:05 10/28/23 03:20
10/26/23 10/27/23 10/28/23
11:59 11:59 11:59
Actual Weight 71.2 kg 71.9 kg 70.6 kg
PT 13.1 Sec (11.4-14.6) 10/24/23 12:10
INR 0.99 10/24/23 12:10
APTT 85.7 Sec (23.4-35.0) H 10/28/23 03:23
Triglycerides 128 mg/dl (10-149) 10/26/23 01:05
LDL Cholesterol, Calc 47 mg/dl 10/26/23 01:05
VLDL Cholesterol, Calc 25 mg/dl (0-30) 10/26/23 01:05
HDL Cholesterol 90 mg/dl 10/26/23 01:05
LAB Results
10/25/23
09:57
Troponin I 0.337 H*
Physical Exam
Constitutional: No acute distress and Comfortable
EENT: Moist mucous membranes and Other (ET tube in place.)
Cardiovascular: Rhythm & rate is regular, Pedal edema is absent, JVD pressure is normal, Systolic murmur absent, Diastolic murmur absent, S1S2 is normal and Rub present
Respiratory: Respiratory effort normal, Lungs clear to auscul., Wheeze Absent and Crackles Absent
GI: Soft, Distention absent, Flat, Non tender and Normal bowel sounds
Neuro/Psych: Other (Intubated and sedated.)
Data Reviewed
-
Date of Service: October 28, 2023
Medical Decision Making: Reviewed Test Results and Independent Historian Assessment
EKG: Tracing Personally Visualized and interpreted and Report Reviewed by me
Echo: Report Reviewed by me
X-Ray/CT/US/MRI/NUC/PET: Image Personally Visualized and interpreted and Report Reviewed by me
Medical Tests (PFT, Pathology etc): Image Personally Visualized and interpreted and Report Reviewed by me
Labs: Labs Reviewed by me
[2023-10-28 09:58] LABS: ACT+ - POC 109 Seconds (82-134)
[2023-10-28 10:03] LABS: B.E. - POC -1.8 mmol/L; Glucose - POC 107 mg/dl (65-99); HCO3 - POC 23 mmol/L (21-29); Hematocrit - POC 28 % PCV (37-47); Hemodilution- POC Yes; Hemoglobin Calculated - POC 9.6; Ionized Calcium - POC 1.33 mmol/L (1.12-1.27); O2 Saturation %Calculated-POC 99.3 5 (92-96); PCO2 - POC 40 mmHg (35-45); PO2 - POC 152 mmHg (80-100); Sodium - POC 144 mmol/L (135-145); pH - POC 7.38 (7.35-7.45)
--- NOTE | 2023-10-28 10:03 | W.PN.UPDATE ---
Update Note
Progress Note Update
78 y/o female p/w chest pressure and R/I for NSTEMI. SHe was taken to the CVOR today for CABG with Dr. Mccarty.
IV fluids: 1200
Crystalloid:� 1100
U.O.:� 600
UF:� 1000
Blood:� None
Wires:� V
Inotropes:� None
Pressors:� Levophed
Sedatives:� precedex
�
NEURO: sedated on precedex, pupils +2mm B/L
RESP: #8OT @25cm> 500/80%/14/5. Lungs clear B/L. 1 mediastinal and 1LP (140cc on arrival) chest tubes to -20cm suction. Sanguineous drainage
CV: RRR +S1, S2, no S3, no�rub, no murmur. Dermabond to median sternotomy. RIJ Cordis with [place]
ABD: round, soft, no BS
EXT: no edema, +2/4 DP pulses B/L, no femoral bruit, left radial A-line intact
: Rivera with clear yellow urine
�
A/P: POD #0 s/p CABGx2 (HOWARD-LAD seq to Diag)
CALI: EF�nml
- wean and extubate
-Monitor CT and Urine output
>>increased output noted; will increase TV and PEEP
-Wean levo for MAPS >65
- Start ASA tonight and plavix tomorrow
-s/p 150mg Amio bolus intraop; No post-op prophylaxis Amio unless she develops afib
- F/U post-op EKG
�
# acute surgical blood loss anemia-expected
- trend CBC
�
# Hyperglycemia
- insulin infusion x 24h
- SSI afterwards if high insulin requirements
�
# Hyperlipidemia
- resume�statin once tolerating PO
[2023-10-28] MEDS: PLAQUENIL PO (10:09)
[2023-10-28] MEDS: LOW STRENGTH ASPIRIN PO (10:20)
[2023-10-28] MEDS: PROTONIX PO (10:20)
[2023-10-28] MEDS: TOPROL XL PO (10:20)
[2023-10-28] MEDS: PEPCID PO (10:20)
--- NOTE | 2023-10-28 10:22 | W.PN.CT.SURG ---
CT Surgery Operative Note
-
Pre-op Diagnosis: cad
nstemi
Post-op Diagnosis: Same
Procedure: cabg x 2
ohara- diag/lad
on pump
brigido ligation #40 clip
Primary Surgeon: Lul
Assisting Surgeons: Murt - chest
Specimen: None
Cultures: None
Complications / Blood Loss: None
Findings: [place] with preserved Ef pre and post revasc
small targets with diffuse disease
adequate PAVEL
[2023-10-28] MEDS: NOVOLOG FLEXPEN SC ×2 (10:33→15:35)
[2023-10-28] MEDS: NEURONTIN PO ×2 (10:33→23:25)
[2023-10-28 10:45] LABS: Glucose - Point of Care 125 mg/dl (70-99)
[2023-10-28 10:51] LABS: B.E. -2.2 mmol/L; HCO3 22.4 mmol/L (21-28); Hematocrit 29.8 % (37.0-47.0); Ionized Calcium 1.29 mMOL/L (1.15-1.33); O2 Saturation % 99.1 % (94-98); PCO2 37 mmHg (32-35); PO2 276 mmHg (83-108); Platelet Count 142 10^3/uL (130-400); Potassium 4.2 mMOL/L (3.5-5.1); Sodium 140 mMOL/L (136-145); pH 7.39 (7.35-7.45)
[2023-10-28 10:55] LABS: Hemoglobin 10.2 g/dL (12.0-16.0)
[2023-10-28 11:05] LABS: INR 1.61
--- NOTE | 2023-10-28 11:05 | PTCARENOTE ---
Patient received from CVOR s/p CABG x 2/SHAKEEL clip. NSR via cm, SaO2 @ 100% on ventilator, titrating FiO2 as able. RIJ Cordis, w/VIP extension, CVP transduced, R radial arterial line. Epicardial V-wire to pulse generator at VVI backup. Rivera catheter
to gravity. Mediastinal and L pleural chest tubes, y-connected to one pleurevac, placed to -20cm suction w/no air leak noted. All procedural sites stable. See work list for full assessment, interventions performed, and intravenous infusion rates and
titrations.
[2023-10-28 11:06] LABS: APTT 33.8 Sec (23.4-35.0)
[2023-10-28] MEDS: ALBUMIN 5% 250 IV (11:06)
[2023-10-28] MEDS: ANCEF 10 IV ×2 (11:10)
[2023-10-28] MEDS: NSS 500 IV (11:10)
[2023-10-28 11:13] LABS: Blood Urea Nitrogen 11 mg/dl (7-17); Estimated Creatinine Clearance 73 ml/min; Glucose 114 mg/dl (70-99); Magnesium 2.4 mg/dl (1.6-2.3)
[2023-10-28 12:01] LABS: Glucose - Point of Care 161 mg/dl (70-99)
[2023-10-28] MEDS: OFIRMEV 100 IV (12:40)
[2023-10-28 12:59] LABS: Glucose - Point of Care 132 mg/dl (70-99)
[2023-10-28] MEDS: TYLENOL PO ×2 (13:02→23:26)
--- NOTE | 2023-10-28 13:48 | CON.INTV ---
Consultation
Consultation Request
Date/Time Consultation Requested: 10/28/2023
Date/Time Consultation Performed: 10/28/2023
Requesting Provider: Dr. Mccarty
Performing Provider: Dr. Nando Hinojosa
Reason for Consultation: Status post coronary artery bypass
Medical History
-
History of Present Illness:
78-year-old woman with history of GERD, asthma, rheumatoid throat who presented to the emergency room on 10/24/2023 complaining of chest discomfort. Subsequently during this hospital stay patient was taken to the [facility] she was found to have
multivessel coronary Tory disease. She was evaluated by CT surgery and deemed candidate for surgical revascularization.
Surgery underwent on 10/28/2023 without complications.
Currently in the critical care unit. Intubated. Sedated. On mechanical ventilation.
Chest tube in place without significant air leak. Records reviewed.
Past Medical History
Past Medical History: Other (See assessment and plan section)
Social History
Tobacco: Former Smoker (Quit in 1974)
Alcohol: Occasional
Living: With Family
Employment: Retired
Family History
Family History: Reviewed & Not Pertinent
Allergies / Home Medications
Allergies
Allergy/AdvReac Type Severity Reaction Status Date / Time
mold Allergy Shortness Uncoded 10/24/23 11:03
of Breath
Home Medications
�Medication �Instructions �Recorded �Confirmed �Last Taken �Type
Curcumin 750 mg PO DAILY Supplement 07/25/15 10/24/23 10/24/23 History
Silver Hydrosol 1 cap PO DAILY Supplement 07/25/15 10/24/23 10/24/23 History
cinnamon bark 500 mg capsule 1,000 mg PO DAILY Supplement 07/25/15 10/24/23 10/24/23 History
(Cinnamon)
hydroxychloroquine 200 mg tablet 200 mg PO DAILY Autoimmune Disorder 07/25/15 10/24/23 10/24/23 History
ibuprofen 200 mg tablet 200 mg PO BIDPRN PRN mild pain 07/25/15 10/24/23 Unknown History
omega-3 150 hc-smo-muq-fish oil 2,000 mg PO BID Supplement 07/25/15 10/24/23 10/24/23 History
500 mg-D3 200 unit capsule,delayed
rel ([place]-3 Plus Vitamin D3)
simvastatin 20 mg tablet 20 mg PO DAILY High Cholesterol 07/25/15 10/24/23 10/24/23 History
famotidine 20 mg tablet (Pepcid) 20 mg PO BID Gastrointestinal Issue 10/24/23 10/24/23 10/24/23 History
metoprolol succinate 50 mg 50 mg PO DAILY Blood Pressure 10/24/23 10/24/23 10/24/23 History
tablet,extended release 24 hr
(Toprol XL)
omeprazole 20 mg tablet,delayed 20 mg PO DAILY Gastrointestinal 10/24/23 10/24/23 10/24/23 History
release Issue
Review of Systems
-
History Source: Patient
All other systems: Negative unless noted
Vitals / Labs / Diagnostic Testing
Vital Signs
Temp Pulse Resp BP Pulse Ox
97.8 F 82 12 98/67 100
10/28/23 13:00 10/28/23 13:00 10/28/23 13:00 10/28/23 11:11 10/28/23 13:00
Lab Data
10/28/23 10:44
Laboratory Results
10/27/23 10/28/23 10/28/23
19:55 03:23 10:44
PT 19.0 H
INR 1.61
APTT 55.4 H 85.7 H 33.8
pH 7.39
pCO2 37 H
pO2 276 H
HCO3 22.4
O2 Delivery Level
Diagnostic Testing:
Physical Exam
-
HEENT: Normocephalic
Cardiovascular: S1/S2
Respiratory: Clear, Non-Labored Respirations and Other (Chest tube in place: No excessive drainage. No airleak)
GI: Soft and Non Distended
Neurology: Awake, Alert and Oriented
Skin: Warm
General: Respiratory Distress (n)
Assessment
-
Status post coronary artery bypass 10/28/2023-
Postoperative mechanical ventilation
Postoperative anemia
Conditions present prior admission:
Non-ST elevation myocardial infarction on admission
Hyperlipidemia
Rheumatoid arthritis
GERD
Assessment and plan:
She is doing well postop-currently on mechanical ventilation and appears comfortable.
ABG reviewed: Adequate oxygenation on ventilation.
Continue SIMV mode with no change
Spontaneous breathing trial per protocol once sedation wears off.
Anemia noted-no evidence of acute bleeding
Follow H&H serially
Hemodynamics -acceptable on low-dose Levophed. To be weaned off as able.
PA catheter and arterial line in place. Will follow hemodynamics.
Follow renal function.
Adequate urinary output.
Chest tube with no excessive drainage-no air leak.
Chest x-ray reviewed: With no pneumothorax or fluid collections.
Remain nothing by mouth
Head of the bed elevation
Glycemic control per protocol
DVT prophylaxis when safe from the surgical perspective.
Critical care statement: A total of 32 minutes of critical care time was provided for this patient today. This includes management of unstable vital signs, evaluation of the patient at bedside, reviewing the patient's pertinent medical records
including ventilator settings, arterial blood gases, radiographs, microbiology, laboratory evaluations and discussion with primary team, critical care nursing, and respiratory therapy.
[2023-10-28 14:00] LABS: Glucose - Point of Care 133 mg/dl (70-99)
[2023-10-28 14:59] LABS: Glucose - Point of Care 125 mg/dl (70-99)
[2023-10-28 15:08] LABS: Hemoglobin 10.7 g/dL (12.0-16.0); Platelet Count 182 10^3/uL (130-400)
[2023-10-28 15:16] LABS: B.E. -2.9 mmol/L; HCO3 23.2 mmol/L (21-28); Ionized Calcium 1.28 mMOL/L (1.15-1.33); O2 Saturation % 98.8 % (94-98); PCO2 45 mmHg (32-35); PO2 188 mmHg (83-108); Potassium 3.6 mMOL/L (3.5-5.1); pH 7.32 (7.35-7.45)
[2023-10-28] MEDS: KCL 50 IV ×2 (15:23→16:29)
--- NOTE | 2023-10-28 15:33 | RESPNOTE ---
Patient extubated to a 6L nasal cannula following cpap trial and abg. IS re-instruction completed
--- NOTE | 2023-10-28 15:35 | PTCARENOTE ---
Patient displayed evidence overbreathing ventilator - placed to cpap wean. Good TV noted, no apnea. ABG obtained, results conveyed to JUNG Awilda. Patient extubated to 6lnc w/out incident, SaO2 100%.
[2023-10-28] MEDS: DILAUDID 0.25 MG IV (15:51)
[2023-10-28] MEDS: LOW STRENGTH ASPIRIN 81 MG PO (16:09)
[2023-10-28] MEDS: NEURONTIN 100 MG PO (16:31)
[2023-10-28] MEDS: FLEXERIL 5 MG PO (16:59)
[2023-10-28 17:06] LABS: Glucose - Point of Care 92 mg/dl (70-99)
[2023-10-28] MEDS: CRESTOR 40 MG PO (18:02)
[2023-10-28] MEDS: ANCEF 5 IV (18:02)
[2023-10-28 18:59] LABS: Glucose - Point of Care 128 mg/dl (70-99)
[2023-10-28] MEDS: SENOKOT-S 1 TABLET PO (19:21)
[2023-10-28] MEDS: ROXICODONE 5 MG PO (19:21)
--- NOTE | 2023-10-28 19:30 | PTCARENOTE ---
Addendum entered by Seda Scott RN 10/29/23 05:28:
V-wires set to VVI rate of 40, MA of 5, MV of 2
Original Note:
[facility]; pt is resting comfortably in bed; pt is AAOX4; VSS, NSR on monitor; heart sounds audible, rub audible, radial and DP pulses palpable, no edema noted, temp epicardial V-wires set to VVI rate 40, MA 5, Mv 0.8; lung sounds
diminished throughout, spo2 98% on 2 LNC, x1 MS and X1 left pleural CT to -20 wall suction, no air leaks, no tidaling, no crepitus; hypoactive BS x4 quadrants, abdomen soft non tender; pt voiding clear yellow urine via silva catheter; surgical sites
maintained; right IJ cordis/slick, right radial A-line, and PIV all maintained, leveled and zeroed; insulin gtt infusing; pain medication administered for 03/10 pain, see MAR; call ribeiro within reach; will continue to monitor.
[2023-10-28 21:01] LABS: Glucose - Point of Care 122 mg/dl (70-99)
--- NOTE | 2023-10-28 22:00 | PTCARENOTE ---
per CVPA, cuff BP should be followed over A-line; A-line is position.
[2023-10-28 23:07] LABS: Glucose - Point of Care 112 mg/dl (70-99)
[2023-10-29] VITALS (10 sets, daily range): BP systolic 112–138; BP diastolic 47–88; PULSE 96; O2SAT 96; BMI 24.3
--- NOTE | 2023-10-29 | PTCARENOTE ---
Pt assessment unchanged; pt resting comfortably in bed; NSR on monitor, VSS; call ribeiro within reach; will continue to monitor.
[2023-10-29 01:04] LABS: Glucose - Point of Care 107 mg/dl (70-99)
[2023-10-29] MEDS: ANCEF 5 IV ×2 (01:10→11:22)
[2023-10-29] MEDS: FLEXERIL 5 MG PO ×2 (01:39→22:59)
[2023-10-29 03:10] LABS: Glucose - Point of Care 90 mg/dl (70-99)
[2023-10-29 03:27] LABS: Hematocrit 30.7 % (37.0-47.0); Hemoglobin 10.4 g/dL (12.0-16.0); Mean Corp Hgb Conc. 33.9 g/dL (33.0-37.0); Mean Corpuscular Volume 88.5 fL (81.0-99.0); Mean Platelet Volume 10.6 fL (7.4-10.4); Platelet Count 167 10^3/uL (130-400); Red Blood Cell Count 3.47 10^6/uL (4.20-5.40); Red Cell Dist. Width 14.5 % (11.5-14.5); White Blood Cell Count 14.8 10^3/uL (4.8-10.8)
--- NOTE | 2023-10-29 03:35 | W.PN.CT ---
Today's Communication / Plan
-
Plan:
-No major issues overnight. Hemodynamically and neurologically intact
-Successfully extubated 10/28/23 @ 1530
-Weaned off Levophed gtt overnight. On insulin gtt per protocol
-U/O since 110 mL
-Postop EKG consistent with acute pericarditis (+rub), will give 3 doses of 15 mg Toradol. Cr 0.5
-Cont. current meds (ASA, Amiodarone, Crestor, Lopressor; will add Plavix)
-Monitor chest tube output: 1med/L pleural 140/520. Will consider d/c of med and transition pleural to bulb suction
-D/C'd SLIC and A-line this AM @ 0400
-D/C insulin gtt per protocol, and transfer to tele phase
-D/C silva catheter
-Maintain cordis
-Maintain temporary PW (will cut before d/c home)
-OOB into chair/Ambulate
-Encourage use of IS
-Wean off of O2 as tolerated
Assessment / Plan
-
Assessment:
-S/p on pump cabg x 2 (ohara- diag/lad)/brigido ligation #40 clip, by Dr. Mccarty, 10/28/23, pod#1
-Severe CAD involving the LAD
-USA
-NSTEMI (peak trop 0.446)
-Palpitations/PAC's
-LVEF 55-60%, per intraop CALI
-HTN
-HLD
-Prediabetes (hgb A1C 5.7)
-Former tobacco use (quit 1974)
-Hyponatremia (134)
-S/P bone spur
-S/P teeth extractions
-Acute postop blood loss/Anemia (stable without blood transfusion)
-Acute postop atelectasis
-Postop EKG consistent with acute pericarditis (+rub)
Discussed patient care with: Cardiology, Nursing, Respiratory Therapy, Pharmacy and Care Team
Subjective
Procedure
S/p on pump cabg x 2 (ohara- diag/lad)/brigido ligation #40 clip, by Dr. Mccarty, 10/28/23
-
Date of Service: October 29, 2023
Pt c/o incisional pain, otherwise feels well
Objective Data
-
Lab Results
10/29/23 03:17
PT 19.0 Sec (11.4-14.6) H 10/28/23 10:44
INR 1.61 10/28/23 10:44
APTT 33.8 Sec (23.4-35.0) 10/28/23 10:44
Vital Signs
Vital Signs
Temp Pulse Resp BP Pulse Ox
99.1 F 87 16 112/52 98
10/29/23 03:00 10/29/23 03:10 10/29/23 03:00 10/29/23 03:00 10/29/23 03:10
CT Intake/Output/Weight
10/28/23 10/28/23 10/29/23
06:59 18:59 06:59
Intake Total 186 / 1026 561.2 / 760.8 199.6 / 760.8
Output Total 1050 / 1495 445 / 1495
Balance 186 / 1026 -488.8 / -734.2 -245.4 / -734.2
SaO2: 98 (2L)
Physical Exam
-
General: Awake and AOx3
Cardiovascular: Regular rate & rhythm, No Murmurs, Rub (likely acute pericarditis) and No Gallop
Respiratory: Decreased Breath Sounds (at bases, otherwise clear)
Sternum: Stable
Incision: Clean, Dry, Intact and Dressing Intact
Extremities: No Edema
Data Reviewed
-
Lab Results: Results Reviewed
Medications: Active Meds Reviewed
Chest X-Ray: Report Reviewed and Image Reviewed
ECG: Report Reviewed and Image Reviewed
[2023-10-29 03:39] LABS: INR 1.17; PT 14.7 Sec (11.4-14.6)
[2023-10-29 04:00] LABS: Blood Urea Nitrogen 18 mg/dl (7-17); Calcium 8.8 mg/dl (8.4-10.2); Carbon Dioxide 23 mmol/L (22-30); Chloride 112 mmol/L (98-107); Estimated Creatinine Clearance 73 ml/min; Glucose 101 mg/dl (70-99); Magnesium 2.1 mg/dl (1.6-2.3); Potassium 4.3 mmol/L (3.5-5.1); Sodium 138 mmol/L (135-145); eGFR > 60.00
--- NOTE | 2023-10-29 04:30 | PTCARENOTE ---
Per CVPA, silva catheter will remain in place until after rounds when final decision will be made; will continue to monitor.
[2023-10-29] MEDS: ROXICODONE 5 MG PO ×3 (04:54→20:18)
[2023-10-29 05:07] LABS: Glucose - Point of Care 96 mg/dl (70-99)
--- NOTE | 2023-10-29 05:11 | PTCARENOTE ---
Pt assessment unchanged; VSS, NSR with PVCs on monitor. Right radial A-line and slick were removed per CVPA's orders; MA on pacer turned off per CVPA due to inappropriate pacing; will continue to monitor.
[2023-10-29] MEDS: TYLENOL 1000 MG PO ×3 (05:15→22:59)
[2023-10-29 06:54] LABS: Glucose - Point of Care 99 mg/dl (70-99)
--- NOTE | 2023-10-29 07:40 | W.PN.ANS.POP ---
Anesthesia Post Operative
- Anesthesia Post Op Note
Vital Signs Stable-See Nursing Note: Yes
Airway Patent: Yes
Adequate Pain Control: Yes
Change in Mental Status: No
Current Postoperative Nausea & Vomiting: No
Anesthesia Complications: No
General Anesthetic Recall: No
Unplanned Admission: No
Post Op Hydration Adequate: Yes (+PO)
--- NOTE | 2023-10-29 08:00 | PTCARENOTE ---
Resumed care of patient from previous RN. Walking rounds completed. AAOx3 on assessment. drowsy. oob in chair. VSS, NSR on monitor. PVCs. + rub. pulses palpable, no edema. temp epicardial V-wires set to VVI rate 40/0/0.8. pulse ox 93% on RA. CTx2 to
suction. no air leaks/crepitus. draining serosang. +BS. pt voiding clear yellow through silva. insulin gtt infusing per glycemic protocol. no complaints of pain at this time. will continue to monitor.
[2023-10-29] MEDS: PROTONIX 40 MG PO (08:51)
[2023-10-29] MEDS: MAGNESIUM OXIDE 500 MG PO ×2 (08:51→19:43)
[2023-10-29] MEDS: LOW STRENGTH ASPIRIN 81 MG PO (08:52)
[2023-10-29] MEDS: PLAQUENIL 200 MG PO (08:53)
[2023-10-29] MEDS: LOPRESSOR 12.5 MG PO ×3 (08:53→20:18)
[2023-10-29] MEDS: PLAVIX 75 MG PO (08:53)
[2023-10-29] MEDS: NOVOLOG FLEXPEN SC (08:56)
[2023-10-29] MEDS: BACTROBAN 2% OINTMENT 1 APPLIC NASAL ×2 (08:56→19:44)
[2023-10-29] MEDS: NEURONTIN 100 MG PO ×3 (08:57→23:00)
[2023-10-29] MEDS: SENOKOT-S 1 TABLET PO ×2 (08:57→19:42)
[2023-10-29] MEDS: NSS IV (08:58)
[2023-10-29] MEDS: LIDOCAINE 4% PATCH TOPICAL (09:04)
[2023-10-29 09:05] LABS: Glucose - Point of Care 104 mg/dl (70-99)
--- NOTE | 2023-10-29 11:39 | W.PN.CD ---
Today's Communication / Plan
-
-No major events overnight.
-Remains in sinus rhythm on telemetry.
-Continue current medications and routine post-operative management as directed by CT Surgery.
Impression / Plan
-
Impression/Plan: 78 y/o female with RA and HLD admitted with NSTEMI.
#NSTEMI:
-Cardiac cath 10/25/2023 for NSTEMI: Severe single-vessel LAD disease with ostial LAD lesion�not amenable to intervention due to stenting back into left main across the origin of left circumflex and another mid LAD lesion.
-S/P off pump 2V CABG (HOWARD to LAD, SVG to D1) and LAAL (#40 Atriclip) on 10/28/2023; extubated.
-Continue metoprolol, aspirin, high dose, high potency statin.
-Continue current medications and routine post-operative management as directed by CT Surgery.
-Pain control/chest tubes per CT surgery.
#HLD:
-Chronic, stable.
-Total cholesterol = 162, LDL = 47, HDL = 90, Triglycerides = 128.
-High dose, high potency statin.
#Palpitations/PAC's:
-Chronic, stable.
-Continue metoprolol
#Rheumatoid arthritis:
-Chronic, stable.
-On medical therapy.
#GERD:
-Chronic, stable.
-On H2 josette.
Subjective/Interval History:
No major events overnight. Remains in sinus rhythm on telemetry.
DATA:
Cardiac catheterization, 10/25/2023:
CORONARY ANGIOGRAPHY
Dominance: Right
Left Main: Normal
LAD: 90% ostial LAD stenosis with the angiographic appearance of thrombus. There is RAKESH grade III flow in the LAD. The mid LAD has 60% stenosis just distal to D3. The distal LAD has 40-50% stenosis spanning D4 takeoff
Circumflex: Trivial luminal irregularities
RCA: Dominant vessel with 20% mid stenosis and otherwise trivial luminal irregularities in the RCA proper. The medium to large PDA has 30% ostial stenosis.
CONCLUSIONS
1: Systemic hypertension
2: Normal left ventricular function with EF 67%
3. Severe single-vessel LAD disease as described. The culprit for her ACS is clearly the ostial LAD lesion. This lesion is quite unfavorable for PCI which would require stenting back into the left main across the origin of the circumflex.
Furthermore there is a borderline significant lesion in the mid LAD.
4. Recommend CT surgical consultation for inpatient CABG x 2 (LAD, D3)
TTE, 10/24/2023:
CONCLUSIONS
Normal left ventricular size, wall thickness and systolic function. No regional
wall motion abnormalities are seen. LV ejection fraction is 55-60% by
volumetric assessment. Stage I diastolic dysfunction suggestive of abnormal
relaxation.
Normal right ventricular size and function.
Mild mitral regurgitation.
Compared to prior from January 14, 2017, no significant change.
Physical Exam
Vital Signs/Labs
Vital Signs
Temp Pulse Resp BP Pulse Ox
98.5 F 91 16 121/65 93
10/29/23 08:00 10/29/23 09:42 10/29/23 06:54 10/29/23 09:00 10/29/23 09:00
10/28/23 10/29/23 10/30/23
06:59 06:59 06:59
Actual Weight 70.6 kg 70.3 kg
10/29/23 03:17
10/29/23 03:17
PT 14.7 Sec (11.4-14.6) H 10/29/23 03:17
INR 1.17 10/29/23 03:17
APTT 33.8 Sec (23.4-35.0) 10/28/23 10:44
Magnesium 2.1 mg/dl (1.6-2.3) 10/29/23 03:17
Triglycerides 128 mg/dl (10-149) 10/26/23 01:05
LDL Cholesterol, Calc 47 mg/dl 10/26/23 01:05
VLDL Cholesterol, Calc 25 mg/dl (0-30) 10/26/23 01:05
HDL Cholesterol 90 mg/dl 10/26/23 01:05
Physical Exam
Constitutional: No acute distress and Comfortable
EENT: Anicteric
Cardiovascular: Rhythm & rate is regular, Pedal edema is absent, Systolic murmur absent and S1S2 is normal
Respiratory: Respiratory effort normal and Lungs clear to auscul.
GI: Soft
Neuro/Psych: AO x 3
Other: Skin (Warm, dry, intact)
Data Reviewed
-
Date of Service: October 29, 2023
EKG: Tracing Personally Visualized and interpreted (Telemetry: Sinus rhythm)
Labs: Labs Reviewed by me
Critical Care Time (in minutes): 34 minutes
--- NOTE | 2023-10-29 12:04 | PTCARENOTE ---
oob to chair with assist x1. tolerated well. appetite fair. tolerating pain. using IS. Family at bedside.
[2023-10-29 13:05] LABS: Glucose - Point of Care 154 mg/dl (70-99)
[2023-10-29] MEDS: NOVOLOG FLEXPEN 2 UNITS SC (13:36)
--- NOTE | 2023-10-29 14:36 | W.PN.INTV ---
Today's Communication / Plan
Recommendations
Follow chest tube output
Follow H&H
Increase activity as able
Continue postoperative care
Sign off
Assessment
-
Status post coronary artery bypass 10/28/2023-
Postoperative mechanical ventilation
Postoperative anemia
Conditions present prior admission:
Non-ST elevation myocardial infarction on admission
Hyperlipidemia
Rheumatoid arthritis
GERD
Assessment and plan:
Doing well postoperative day 1.
Hemodynamically stable.
Neurologically intact
Encourage incentive spirometry
Wean off oxygen as able
Anemia noted-no evidence of acute bleeding
Follow H&H serially
Hemodynamics -off vasopressors.
Follow renal function.
Adequate urinary output.
Chest tube with no excessive drainage-no air leak.
Chest x-ray reviewed: With no pneumothorax or fluid collections.
Advance diet as tolerated
Head of the bed elevation
Glycemic control per protocol
DVT prophylaxis when safe from the surgical perspective.
No additional recommendation from the critical care perspective.
Patient has been transferred to telemetry
Sign off
Subjective Dataa
Subjective Data
Date of Service:
Date of Service: October 29, 2023
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
Subjective:
No overnight events
Denies any significant shortness of breath
Pain relatively well-controlled
No significant cough or phlegm production.
Review of Systems
General: Fever (n)
Cardiopulmonary: Dyspnea (n) and Cough (n)
GI: Abdominal Pain (n) and Nausea (n)
Objective Data
Data Reviewed
Vital Signs / I&O / Oxygen:
Vital Signs
Temp Pulse Resp BP Pulse Ox
98.2 F 89 18 121/65 93
10/29/23 12:00 10/29/23 12:46 10/29/23 12:00 10/29/23 09:00 10/29/23 12:00
Intake and Output
10/28/23 10/29/23 10/30/23
06:59 06:59 06:59
Intake Total 1026 / 1026 813.8 / 813.8 21.5 / 21.5
Output Total 1660 / 1660 105 / 105
Balance 1026 / 1026 -846.2 / -846.2 -83.5 / -83.5
SaO2 [CPAP] 99
SaO2 [SIMV] 100
SaO2 93
Nasal Cannula flow liters per 2
minute
Physical Exam
General: Respiratory Distress (n) and Comfortable
HEENT: Normocephalic
Cardiovascular: S1-S2 and Regular Rhythm
Respiratory: Clear and Chest Tube (No air leak or excessive drainage)
GI: Soft and Non Distended
Neurology: Awake and Alert
Labs/Micro/Reports
Lab Data
10/29/23 03:17
10/29/23 03:17
Laboratory Results
10/28/23 10/29/23
14:56 03:17
PT 14.7 H
INR 1.17
pH 7.32 L
pCO2 45 H
pO2 188 H
HCO3 23.2
O2 Delivery Level
--- NOTE | 2023-10-29 16:00 | PTCARENOTE ---
d/c med CT, d/c silva. bulbed Pleural CT. insulin gtt d/c'd. tolerated.
[2023-10-29] MEDS: CRESTOR 40 MG PO (18:27)
[2023-10-29] MEDS: NOVOLOG FLEXPEN 3 UNITS SC (18:28)
[2023-10-29 18:30] LABS: Glucose - Point of Care 193 mg/dl (70-99)
--- NOTE | 2023-10-29 20:00 | PTCARENOTE ---
[facility] pt is resting comfortably in chair; pt states pain is 8/10 see MAR for details; pt is AAOx4; NSR on monitor, VSS; heart sounds audible, rub present, radial and DP pulses palpable, temp epicardial V-wires insulated; lung
sounds diminished throughout, spo2 95 on RA, x1 left pleural CT to bulb; + BS x4 quadrants, abdomen soft non tender; pt due to void after silva catheter removal @1000, BS @ 2030 showed 224ml of urine in bladder, will continue to scan, see worklist;
surgical sites maintained; right IJ cordis and PV maintained; addition dose of lopressor and amio ordered for HR, toradol also ordered per CVPA; pt's daughter is at bedside and is staying the night; chg wipes provided, leads changed, new gown
provided; call ribeiro within reach; will continue to monitor.
[2023-10-29] MEDS: PACERONE 200 MG PO ×2 (20:18→22:59)
[2023-10-29] MEDS: TORADOL 15 MG IV (20:23)
[2023-10-30] VITALS (22 sets, daily range): BP systolic 87–138; BP diastolic 42–97; PULSE 80–85; O2SAT 93–94; BMI 25.2
--- NOTE | 2023-10-30 | PTCARENOTE ---
Pt resting comfortably in bed; NSR on monitor, VSS; on going pain management, see MAR; pt yet to void, ongoing bladder scans all of which have been less than 400ml, see worklist; call ribeiro within reach; will continue to monitor.
[2023-10-30] MEDS: TORADOL 15 MG IV ×2 (02:45→08:30)
[2023-10-30 03:01] LABS: Hematocrit 28.6 % (37.0-47.0); Hemoglobin 9.7 g/dL (12.0-16.0); Mean Corp Hgb Conc. 33.9 g/dL (33.0-37.0); Mean Corpuscular Hgb 30.2 pg (27.0-31.0); Mean Corpuscular Volume 89.1 fL (81.0-99.0); Mean Platelet Volume 10.9 fL (7.4-10.4); Platelet Count 168 10^3/uL (130-400); Red Blood Cell Count 3.21 10^6/uL (4.20-5.40); Red Cell Dist. Width 14.7 % (11.5-14.5); White Blood Cell Count 14.1 10^3/uL (4.8-10.8)
[2023-10-30 03:29] LABS: Blood Urea Nitrogen 23 mg/dl (7-17); Calcium 8.7 mg/dl (8.4-10.2); Carbon Dioxide 24 mmol/L (22-30); Chloride 106 mmol/L (98-107); Estimated Creatinine Clearance 73 ml/min; Glucose 117 mg/dl (70-99); Magnesium 2.3 mg/dl (1.6-2.3); Potassium 4.2 mmol/L (3.5-5.1); Sodium 134 mmol/L (135-145); eGFR > 60.00
--- NOTE | 2023-10-30 03:52 | W.PN.CT ---
Today's Communication / Plan
-
Plan:
-No major issues overnight. Hemodynamically and neurologically intact
-Noted to be tachycardic last night, sinus. Lopressor increased to 25 mg BID if BP permits
-Cont. current meds (ASA, Plavix, Amiodarone, Crestor, Lopressor)
-Consider d/c of remaining chest tube: L pleural
-Maintain cordis another day
-Maintain temporary PW (will cut before d/c home)
-OOB into chair/Ambulate
-Encourage use of IS
-Wean off of O2 as tolerated
-Home in 1-2 days
Assessment / Plan
-
Assessment:
-S/p on pump cabg x 2 (ohara- diag/lad)/brigido ligation #40 clip, by Dr. Mccarty, 10/28/23, pod#2
-Severe CAD involving the LAD
-USA
-NSTEMI (peak trop 0.446)
-Palpitations/PAC's
-LVEF 55-60%, per intraop CALI
-HTN
-HLD
-Prediabetes (hgb A1C 5.7)
-Former tobacco use (quit 1974)
-Hyponatremia (134)
-S/P bone spur
-S/P teeth extractions
-Acute postop blood loss/Anemia (stable without blood transfusion)
-Acute postop atelectasis
-Postop EKG consistent with acute pericarditis (+rub)
Discussed patient care with: Cardiology, Nursing, Respiratory Therapy, Pharmacy and Care Team
Subjective
Procedure
S/p on pump cabg x 2 (ohara- diag/lad)/brigido ligation #40 clip, by Dr. Mccarty, 10/28/23
-
Date of Service: October 30, 2023
Pt c/o mild incisional pain, otherwise feels well
Objective Data
-
Lab Results
10/30/23 02:53
10/30/23 02:53
PT 14.7 Sec (11.4-14.6) H 10/29/23 03:17
INR 1.17 10/29/23 03:17
APTT 33.8 Sec (23.4-35.0) 10/28/23 10:44
Vital Signs
Vital Signs
Temp Pulse Resp BP Pulse Ox
98.0 F 78 16 100/51 93
10/30/23 00:00 10/30/23 00:16 10/30/23 00:00 10/30/23 00:00 10/30/23 00:16
CT Intake/Output/Weight
10/29/23 10/29/23 10/30/23
06:59 18:59 06:59
Intake Total 252.6 / 813.8 21.5 / 311.5 290 / 311.5
Output Total 610 / 1660 105 / 110 5 / 110
Balance -357.4 / -846.2 -83.5 / 201.5 285 / 201.5
SaO2: 93 (2L)
Physical Exam
-
General: Awake, Oriented and AOx3
Cardiovascular: Regular rate & rhythm, No Murmurs and No Gallop
Respiratory: Decreased Breath Sounds
Incision: Clean, Dry, Intact and Dressing Intact
Extremities: No Edema
Data Reviewed
-
Lab Results: Results Reviewed
Medications: Active Meds Reviewed
Chest X-Ray: Report Reviewed and Image Reviewed
ECG: Report Reviewed and Image Reviewed
--- NOTE | 2023-10-30 04:00 | PTCARENOTE ---
Pt assessment unchanged; VSS, NSR on monitor; 2LNC of o2 was place on pt overnight due to spo2 of 89%; labs drawn and sent; left AC PIV removed to to leaking, 22g P[address] place on left forearm; pt was assisted to bathroom to void @ 0300; hat was place
in toilet but pt missed, unable to measure void; postresidual BS showed 312ml of urine in bladder, will continue to monitor via bladder scan. call ribeiro within reach; will continue to monitor.
[2023-10-30] MEDS: TYLENOL 1000 MG PO ×3 (06:46→22:00)
[2023-10-30] MEDS: BACTROBAN 2% OINTMENT 1 APPLIC NASAL ×2 (08:29→20:01)
[2023-10-30] MEDS: PACERONE 200 MG PO ×3 (08:30→22:00)
[2023-10-30] MEDS: NEURONTIN 100 MG PO ×3 (08:35→22:00)
[2023-10-30] MEDS: LOW STRENGTH ASPIRIN 81 MG PO (08:35)
[2023-10-30] MEDS: PLAVIX 75 MG PO (08:35)
[2023-10-30] MEDS: PROTONIX 40 MG PO (08:35)
[2023-10-30] MEDS: SENOKOT-S 1 TABLET PO ×2 (08:35→20:01)
[2023-10-30] MEDS: PLAQUENIL 200 MG PO (08:35)
[2023-10-30] MEDS: MAGNESIUM OXIDE 500 MG PO ×2 (08:36→20:01)
[2023-10-30] MEDS: LIDOCAINE 4% PATCH 1 PATCH TOPICAL (08:36)
--- NOTE | 2023-10-30 09:29 | PTCARENOTE ---
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 NSR via cm, SaO2 @ 94% on RA. RIJ Cordis w/kvo infusing. Epicardial V-wire, insulated to chest wall. L pleural chest tube to bulb evacuator, scant drainage noted. All
procedural sites stable. Daughter at bedside, both updated to plan of care for the day, in agreement. See work list for full assessment and interventions performed.
--- NOTE | 2023-10-30 09:44 | W.PN.CD ---
Today's Communication / Plan
-
Impression / Plan
-
Impression/Plan: 78 y/o female with RA and HLD admitted with NSTEMI.
#NSTEMI:
-Cardiac cath 10/25/2023 for NSTEMI: Severe single-vessel LAD disease with ostial LAD lesion�not amenable to intervention due to stenting back into left main across the origin of left circumflex and another mid LAD lesion.
-S/P off pump 2V CABG (HOWARD to LAD, SVG to D1) and LAAL (#40 Atriclip) on 10/28/2023
-Continue metoprolol, aspirin, high dose, high potency statin.
-Continue current medications and routine post-operative management as directed by CT Surgery.
-Pain control/chest tubes per CT surgery.
#HLD: High dose, high potency statin.
#Palpitations/PAC's:
-Chronic, stable.
-Continue metoprolol
#Rheumatoid arthritis:
-Chronic, stable.
-On medical therapy.
#GERD:
-Chronic, stable.
-On H2 josette.
Subjective/Interval History:
Feels relatively well. Pain controlled. Tired
DATA:
Cardiac catheterization, 10/25/2023:
CORONARY ANGIOGRAPHY
Dominance: Right
Left Main: Normal
LAD: 90% ostial LAD stenosis with the angiographic appearance of thrombus. There is RAKESH grade III flow in the LAD. The mid LAD has 60% stenosis just distal to D3. The distal LAD has 40-50% stenosis spanning D4 takeoff
Circumflex: Trivial luminal irregularities
RCA: Dominant vessel with 20% mid stenosis and otherwise trivial luminal irregularities in the RCA proper. The medium to large PDA has 30% ostial stenosis.
CONCLUSIONS
1: Systemic hypertension
2: Normal left ventricular function with EF 67%
3. Severe single-vessel LAD disease as described. The culprit for her ACS is clearly the ostial LAD lesion. This lesion is quite unfavorable for PCI which would require stenting back into the left main across the origin of the circumflex.
Furthermore there is a borderline significant lesion in the mid LAD.
4. Recommend CT surgical consultation for inpatient CABG x 2 (LAD, D3)
TTE, 10/24/2023:
CONCLUSIONS
Normal left ventricular size, wall thickness and systolic function. No regional
wall motion abnormalities are seen. LV ejection fraction is 55-60% by
volumetric assessment. Stage I diastolic dysfunction suggestive of abnormal
relaxation.
Normal right ventricular size and function.
Mild mitral regurgitation.
Compared to prior from January 14, 2017, no significant change.
Physical Exam
Vital Signs/Labs
Vital Signs
Temp Pulse Resp BP Pulse Ox
36.7 C 85 15 104/54 94
10/30/23 08:04 10/30/23 08:42 10/30/23 08:04 10/30/23 08:31 10/30/23 08:10
10/29/23 10/30/23 10/31/23
06:59 06:59 06:59
Actual Weight 154 lb 15.759 oz 160 lb 11.472 oz
10/30/23 02:53
10/30/23 02:53
PT 14.7 Sec (11.4-14.6) H 10/29/23 03:17
INR 1.17 10/29/23 03:17
APTT 33.8 Sec (23.4-35.0) 10/28/23 10:44
Magnesium 2.3 mg/dl (1.6-2.3) 10/30/23 02:53
Triglycerides 128 mg/dl (10-149) 10/26/23 01:05
LDL Cholesterol, Calc 47 mg/dl 10/26/23 01:05
VLDL Cholesterol, Calc 25 mg/dl (0-30) 10/26/23 01:05
HDL Cholesterol 90 mg/dl 10/26/23 01:05
Physical Exam
Constitutional: No acute distress
EENT: Anicteric and Moist mucous membranes
Cardiovascular: Rhythm & rate is regular, Pedal edema is absent, Systolic murmur absent and Diastolic murmur absent
Respiratory: Respiratory effort normal
GI: Soft, Distention absent and Non tender
Neuro/Psych: Alert
Data Reviewed
-
Date of Service: October 30, 2023
[2023-10-30] MEDS: NSS 500 IV (10:03)
--- NOTE | 2023-10-30 10:45 | PTCARENOTE ---
Left pleural chest tube d/c'd as ordered, patient tolerated well.
[2023-10-30] MEDS: TOPROL XL 25 MG PO (11:21)
--- NOTE | 2023-10-30 12:07 | PTCARENOTE ---
VS obtained, assessment stable. Patient assisted back oob for lunch.
--- NOTE | 2023-10-30 12:09 | CM ---
Reviewed chart. Met with Mrs. Vizcarra yo review dsicharge plans. She states she is feeling weill. She ambulated in the hallway 75 feet. She states she is planning on going to stay with her daughter Becca at [address] [place] [address]. She
states he daughter has a one story home with two steps to enter. We reviewed a home visit by the Cardiothoracic Transitional Care Nurse. She is agreeable to a home visit. Prior to admission she resides alone in a one story home with one step to
enter. Prior to admission she was independent with ambulation and adls. Medical work-up in progress. The discharge plan is to go to her daughter's home with a home visit by the Cardiothoracic Transitional Care Nurse when medically stable.
--- NOTE | 2023-10-30 16:01 | PTCARENOTE ---
Resumed care of pt from previous RN; Pt AAOX3 and resting comfortably in bed; NSR on monitor and VSS; Epicardial V wires insulated; Lungs diminished; IS to 750; positive bowel sounds; pt voiding nick color urine; palpable pulses throughout; no
edema noted; surgical sites C/D/I.
[2023-10-30] MEDS: CRESTOR 40 MG PO (17:13)
--- NOTE | 2023-10-30 19:20 | PTCARENOTE ---
NSR. VSS. RA. Pt sleepy, but wakes easy. Assessment per nursing flowsheet. Call ribeiro in reach
--- NOTE | 2023-10-30 20:30 | PTCARENOTE ---
Wedding band and earring sent home with
[2023-10-31] VITALS (9 sets, daily range): BP systolic 108–150; BP diastolic 57–70; PULSE 83; O2SAT 96–98; BMI 25.5
--- NOTE | 2023-10-31 00:08 | PTCARENOTE ---
Pt c/o of SOB upon returning from the bathroom. Lung sounds are diminished, WOB slightly increased. O2 sat on RA 94%.
Sage Foss made aware. PA assessed patient. No new orders.
[2023-10-31 03:25] LABS: Hematocrit 28.7 % (37.0-47.0); Hemoglobin 9.9 g/dL (12.0-16.0); Mean Corp Hgb Conc. 34.5 g/dL (33.0-37.0); Mean Corpuscular Hgb 30.3 pg (27.0-31.0); Mean Corpuscular Volume 87.8 fL (81.0-99.0); Mean Platelet Volume 10.9 fL (7.4-10.4); Platelet Count 162 10^3/uL (130-400); Red Blood Cell Count 3.27 10^6/uL (4.20-5.40); Red Cell Dist. Width 14.9 % (11.5-14.5); White Blood Cell Count 12.2 10^3/uL (4.8-10.8)
[2023-10-31 03:39] LABS: Blood Urea Nitrogen 21 mg/dl (7-17); Calcium 8.5 mg/dl (8.4-10.2); Carbon Dioxide 27 mmol/L (22-30); Chloride 105 mmol/L (98-107); Estimated Creatinine Clearance 73 ml/min; Glucose 102 mg/dl (70-99); Magnesium 2.4 mg/dl (1.6-2.3); Potassium 4.3 mmol/L (3.5-5.1); Sodium 134 mmol/L (135-145); eGFR > 60.00
--- NOTE | 2023-10-31 03:47 | PTCARENOTE ---
NSR with PVCs. Resting. OOB to bathroom with stand by assistance. Assessment unchanged. Denies pain
[2023-10-31] MEDS: TYLENOL 1000 MG PO ×3 (05:51→21:17)
--- NOTE | 2023-10-31 05:52 | W.PN.CT ---
Today's Communication / Plan
-
-pod #3
-c/o LOPEZ with walking to the bathroom, wt is up 7 lbs from preop
-weaned off O2 - pOx 96% on RA
-some hypotension earlier - improved, denies any dizziness, tolerated Toprol XL 25 qd
-current meds (ASA, Plavix, Toprol, Amio, Crestor, Protonix)
-encourage IS, OOB
Assessment / Plan
-
Assessment:
-S/p on pump cabg x 2 (ohara- diag/lad)/brigido ligation #40 clip, by Dr. Mccarty, 10/28/23, pod#3
-Severe CAD involving the LAD
-USA
-NSTEMI (peak trop 0.446)
-Palpitations/PAC's
-LVEF 55-60%, per intraop CALI
-HTN
-HLD
-Prediabetes (hgb A1C 5.7)
-Former tobacco use (quit 1974)
-Hyponatremia (134)
-S/P bone spur
-S/P teeth extractions
-Acute postop blood loss/Anemia (stable without blood transfusion)
-Acute postop atelectasis
-Postop EKG consistent with acute pericarditis (+rub)
-Acute postop hypokalemia
Discussed patient care with: Nursing and Care Team
Subjective
Procedure
S/p on pump cabg x 2 (ohara- diag/lad)/brigido ligation #40 clip, by Dr. Mccarty, 10/28/23
-
Date of Service: October 31, 2023
Objective Data
-
Lab Results
10/31/23 03:07
10/31/23 03:07
PT 14.7 Sec (11.4-14.6) H 10/29/23 03:17
INR 1.17 10/29/23 03:17
APTT 33.8 Sec (23.4-35.0) 10/28/23 10:44
Vital Signs
Vital Signs
Temp Pulse Resp BP Pulse Ox
97.9 F 87 20 150/68 96
10/31/23 03:15 10/31/23 03:02 10/31/23 03:15 10/31/23 03:02 10/31/23 03:15
CT Intake/Output/Weight
10/30/23 10/30/23 10/31/23
06:59 18:59 06:59
Intake Total 290 / 311.5 580 / 580
Output Total 25 / 130 800 / 1750 950 / 1750
Balance 265 / 181.5 -220 / -1170 -950 / -1170
SaO2: 96
Physical Exam
-
General: Awake and AOx3
Cardiovascular: Regular rate & rhythm, No Murmurs and No Rub
Respiratory: Decreased Breath Sounds
Sternum: Stable
Incision: Clean, Dry and Intact
Extremities: No Edema (2+ DP b/l)
Abdomen: soft, nontender, nondistended, + bowel sounds
Data Reviewed
-
Lab Results: Results Reviewed
Medications: Active Meds Reviewed
Chest X-Ray: Report Reviewed and Image Reviewed
ECG: Report Reviewed and Image Reviewed
--- NOTE | 2023-10-31 07:43 | W.PN.CD ---
Today's Communication / Plan
-
- consider Lasix for weight gain/dyspnea.
- I Encouraged incentive spirometry & ambulation
Impression / Plan
-
Impression/Plan: 78 y/o female with RA and HLD admitted with NSTEMI. Now s/p off pump 2V CABG (HOWARD to LAD, SVG to D1) and LAAL (#40 Atriclip) on 10/28/2023
#NSTEMI:
-Continue metoprolol, aspirin, high dose, high potency statin.
-Continue current medications and routine post-operative management as directed by CT Surgery.
-consider Lasix for weight gain/dyspnea. Encouraged incentive spirometry
#HLD: High dose, high potency statin.
#Palpitations/PAC's:
-Chronic, stable.
-Continue metoprolol
#Rheumatoid arthritis:
-Chronic, stable.
-On medical therapy.
#GERD:
-Chronic, stable.
-On H2 josette.
Subjective/Interval History:
Some LOPEZ. No pain or palps
DATA:
Cardiac catheterization, 10/25/2023:
CORONARY ANGIOGRAPHY
Dominance: Right
Left Main: Normal
LAD: 90% ostial LAD stenosis with the angiographic appearance of thrombus. There is RAKESH grade III flow in the LAD. The mid LAD has 60% stenosis just distal to D3. The distal LAD has 40-50% stenosis spanning D4 takeoff
Circumflex: Trivial luminal irregularities
RCA: Dominant vessel with 20% mid stenosis and otherwise trivial luminal irregularities in the RCA proper. The medium to large PDA has 30% ostial stenosis.
CONCLUSIONS
1: Systemic hypertension
2: Normal left ventricular function with EF 67%
3. Severe single-vessel LAD disease as described. The culprit for her ACS is clearly the ostial LAD lesion. This lesion is quite unfavorable for PCI which would require stenting back into the left main across the origin of the circumflex.
Furthermore there is a borderline significant lesion in the mid LAD.
4. Recommend CT surgical consultation for inpatient CABG x 2 (LAD, D3)
TTE, 10/24/2023:
CONCLUSIONS
Normal left ventricular size, wall thickness and systolic function. No regional
wall motion abnormalities are seen. LV ejection fraction is 55-60% by
volumetric assessment. Stage I diastolic dysfunction suggestive of abnormal
relaxation.
Normal right ventricular size and function.
Mild mitral regurgitation.
Compared to prior from January 14, 2017, no significant change.
Physical Exam
Vital Signs/Labs
Vital Signs
Temp Pulse Resp BP Pulse Ox
36.6 C 102 20 150/68 96
10/31/23 03:15 10/31/23 06:00 10/31/23 03:15 10/31/23 03:02 10/31/23 05:59
10/30/23 10/31/23 11/01/23
06:59 06:59 06:59
Actual Weight 160 lb 11.472 oz 162 lb 11.218 oz
10/31/23 03:07
10/31/23 03:07
PT 14.7 Sec (11.4-14.6) H 10/29/23 03:17
INR 1.17 10/29/23 03:17
APTT 33.8 Sec (23.4-35.0) 10/28/23 10:44
Magnesium 2.4 mg/dl (1.6-2.3) H 10/31/23 03:07
Triglycerides 128 mg/dl (10-149) 10/26/23 01:05
LDL Cholesterol, Calc 47 mg/dl 10/26/23 01:05
VLDL Cholesterol, Calc 25 mg/dl (0-30) 10/26/23 01:05
HDL Cholesterol 90 mg/dl 10/26/23 01:05
Physical Exam
Constitutional: No acute distress
EENT: Anicteric
Cardiovascular: Rhythm & rate is regular, Pedal edema is absent, Systolic murmur absent and Diastolic murmur absent
Respiratory: Other (decreased BS)
GI: Soft and Distention absent
Neuro/Psych: Alert
Data Reviewed
-
Date of Service: October 31, 2023
EKG: Other (tele OK)
--- NOTE | 2023-10-31 08:00 | PTCARENOTE ---
Received pt from drill press tender RN; pt AAOX3 and resting comfortably in chair; NSR on monitor and VSS; Epicardial V wire insulated; RIJ Cordis and PIV x1 patent; Lungs diminished; IS to 750; positive bowel sounds; pt voiding yellow nick urine;
palpable pulses throughout; no edema noted; surgical sites C/D/I; see nursing documentation for further details.
[2023-10-31] MEDS: MAGNESIUM OXIDE 500 MG PO ×2 (08:01→19:54)
[2023-10-31] MEDS: LIDOCAINE 4% PATCH 1 PATCH TOPICAL (08:01)
[2023-10-31] MEDS: PROTONIX 40 MG PO (08:02)
[2023-10-31] MEDS: PLAQUENIL 200 MG PO (08:02)
[2023-10-31] MEDS: SENOKOT-S 1 TABLET PO ×2 (08:02→19:54)
[2023-10-31] MEDS: TOPROL XL 25 MG PO ×2 (08:02→13:40)
[2023-10-31] MEDS: LOW STRENGTH ASPIRIN 81 MG PO (08:02)
[2023-10-31] MEDS: BACTROBAN 2% OINTMENT 1 APPLIC NASAL ×2 (08:02→19:54)
[2023-10-31] MEDS: PACERONE 200 MG PO ×3 (08:02→21:17)
[2023-10-31] MEDS: NEURONTIN 100 MG PO ×3 (08:02→21:17)
[2023-10-31] MEDS: PLAVIX 75 MG PO (08:02)
[2023-10-31] MEDS: LASIX 20 MG IV (11:29)
--- NOTE | 2023-10-31 11:48 | PTCARENOTE ---
RIJ Cordis removed per CVNP order.
[2023-10-31] MEDS: NSS IV (11:49)
--- NOTE | 2023-10-31 12:19 | PTCARENOTE ---
Assessment unchanged; NSR on monitor and VSS on monitor.
[2023-10-31] MEDS: MILK OF MAGNESIA 30 ML PO (13:45)
--- NOTE | 2023-10-31 13:50 | PTCARENOTE ---
Rec'd pt this shift awake and alert sitting in ashlee. Pt NSR on monitor, RA, lungs clear. Encouraged coughing and deep breathing and use of IS. Pt ambulating to bathroom with one person assist. Toprol given for HR 98. Agree with previous assessment.
See worklsit for VS/I and O and assessments.
--- NOTE | 2023-10-31 15:53 | PTCARENOTE ---
pt bathed with CHG wipes with assistance. chest tube dsg changed. Pt ambulating in room without difficulty.
[2023-10-31] MEDS: CRESTOR 40 MG PO (18:08)
--- NOTE | 2023-10-31 20:31 | PTCARENOTE ---
Received patient from RN. DAVID with PVCs. RA. ADELES. Walked on unit prior to getting into bed. IS encouraged. LOPEZ. Assessment per nursing flowsheet. Plan for home tomorrow.
[2023-11-01 00:58] VITALS: BP 117/62
--- NOTE | 2023-11-01 01:02 | PTCARENOTE ---
Assessment unchanged. NSR with PVCs. Up to the bathroom. Voids. Small BM.
[2023-11-01 04:33] VITALS: BP 132/69
[2023-11-01 04:38] VITALS: BMI 25.1
--- NOTE | 2023-11-01 04:49 | PTCARENOTE ---
NSR. VSS. RA. Assessment unchanged. Labs obtained. OOB to bathroom
[2023-11-01 05:01] LABS: Hematocrit 28.7 % (37.0-47.0); Hemoglobin 9.6 g/dL (12.0-16.0); Mean Corp Hgb Conc. 33.4 g/dL (33.0-37.0); Mean Corpuscular Hgb 29.6 pg (27.0-31.0); Mean Corpuscular Volume 88.6 fL (81.0-99.0); Mean Platelet Volume 10.9 fL (7.4-10.4); Platelet Count 194 10^3/uL (130-400); Red Blood Cell Count 3.24 10^6/uL (4.20-5.40); Red Cell Dist. Width 14.7 % (11.5-14.5); White Blood Cell Count 11.9 10^3/uL (4.8-10.8)
[2023-11-01 05:24] LABS: Blood Urea Nitrogen 14 mg/dl (7-17); Calcium 8.7 mg/dl (8.4-10.2); Carbon Dioxide 28 mmol/L (22-30); Chloride 105 mmol/L (98-107); Estimated Creatinine Clearance 73 ml/min; Glucose 98 mg/dl (70-99); Magnesium 2.5 mg/dl (1.6-2.3); Potassium 4.1 mmol/L (3.5-5.1); Sodium 138 mmol/L (135-145); eGFR > 60.00
--- NOTE | 2023-11-01 06:12 | W.PN.CT ---
Today's Communication / Plan
-
-pod #4
-looks and feels better
-diuresed well with 20 iv Lasix on 10/30 (UO 1025/2325 in 12/24 hrs)
-stable R apical ptx - follow 2v-CXR today
-some hypotension earlier - improved, denies any dizziness, tolerating Toprol XL 25 qd
-current meds (ASA, Plavix, Toprol, Amio, Crestor, Protonix)
-encourage IS, OOB
-possible d/c soon
Assessment / Plan
-
Assessment:
-S/p on pump cabg x 2 (ohara- diag/lad)/brigido ligation #40 clip, by Dr. Mccarty, 10/28/23, pod#4
-Severe CAD involving the LAD
-USA
-NSTEMI (peak trop 0.446)
-Palpitations/PAC's
-LVEF 55-60%, per intraop CALI
-HTN
-HLD
-Prediabetes (hgb A1C 5.7)
-Former tobacco use (quit 1974)
-Hyponatremia (134)
-S/P bone spur
-S/P teeth extractions
-Acute postop blood loss/Anemia (stable without blood transfusion)
-Acute postop atelectasis
-Postop EKG consistent with acute pericarditis (+rub)
-Acute postop hypokalemia
-Acute postop small R apical ptx - stable
Discussed patient care with: Nursing and Care Team
Subjective
Procedure
S/p on pump cabg x 2 (hoara- diag/lad)/brigido ligation #40 clip, by Dr. Mccarty, 10/28/23
-
Date of Service: November 01, 2023
Objective Data
-
Lab Results
05/03/24 04:47
11/01/23 04:47
PT 14.7 Sec (11.4-14.6) H 10/29/23 03:17
INR 1.17 10/29/23 03:17
APTT 33.8 Sec (23.4-35.0) 10/28/23 10:44
Vital Signs
Vital Signs
Temp Pulse Resp BP Pulse Ox
98 F 93 18 132/69 95
11/01/23 04:39 11/01/23 04:33 11/01/23 04:39 11/01/23 04:33 11/01/23 04:39
CT Intake/Output/Weight
10/31/23 10/31/23 11/01/23
06:59 18:59 06:59
Intake Total 110 / 690 280 / 280
Output Total 1000 / 1800 1300 / 2325 1025 / 2325
Balance -890 / -1110 -1020 / -2045 -1025 / -2045
SaO2: 95
Physical Exam
-
General: Awake and AOx3
Cardiovascular: No Murmurs and No Rub
Respiratory: Decreased Breath Sounds
Sternum: Stable
Incision: Clean, Dry and Intact
Extremities: Other (trace edema b/l)
Abdomen: soft, nontender, nondistended, + bowel sounds
Data Reviewed
-
Lab Results: Results Reviewed
Medications: Active Meds Reviewed
Chest X-Ray: Report Reviewed and Image Reviewed
ECG: Report Reviewed and Image Reviewed
[2023-11-01] MEDS: TYLENOL 1000 MG PO (06:21)
--- NOTE | 2023-11-01 07:45 | PTCARENOTE ---
Assumed care of patient. Walking rounds completed with previous RN. Pt assessed while she was sitting in the chair. Pt alert and oriented x4. VILLATORO with equal strength throughout. Standby assist to the bathroom. NSR on tele with rates in the 90s. BP
stable 114/71. Bilateral radial and DP pulses palpable. No edema noted. Epicardial v-wire insulated. POX 96% on RA. Lungs diminished in the bases. No cough noted. IS encouraged-1500mL achieved. Abdomen soft, nontender. +BS. +BM. Pt voiding nick
urine in the toilet. Sternal incision approximated, ecchymotic. Old chest tube sites covered-CDI. Left forearm PIV intact. See MAR for medication administration. See worklist for complete nursing assessment. Plan of care reviewed and patient in
agreement.
[2023-11-01 07:46] VITALS: BP 114/71
[2023-11-01] MEDS: PLAQUENIL 200 MG PO (07:49)
[2023-11-01] MEDS: PROTONIX 40 MG PO (07:49)
[2023-11-01] MEDS: LOW STRENGTH ASPIRIN 81 MG PO (07:49)
[2023-11-01] MEDS: TOPROL XL 25 MG PO (07:49)
[2023-11-01] MEDS: MAGNESIUM OXIDE 500 MG PO (07:49)
[2023-11-01] MEDS: PACERONE 200 MG PO (07:49)
[2023-11-01] MEDS: LIDOCAINE 4% PATCH 1 PATCH TOPICAL (07:49)
[2023-11-01] MEDS: NEURONTIN 100 MG PO (07:49)
[2023-11-01] MEDS: PLAVIX 75 MG PO (07:49)
[2023-11-01] MEDS: BACTROBAN 2% OINTMENT 1 APPLIC NASAL (07:50)
[2023-11-01] MEDS: SENOKOT-S PO (07:50)
[2023-11-01 07:58] VITALS: BP 114/71
[2023-11-01] MEDS: NSS IV (08:09)
--- NOTE | 2023-11-01 08:09 | W.PN.CD ---
Today's Communication / Plan
-
Discharge planning
Impression / Plan
-
Impression/Plan: 78 y/o female with RA and HLD admitted with NSTEMI. Now s/p off pump 2V CABG (HOWARD to LAD, SVG to D1) and LAAL (#40 Atriclip) on 10/28/2023
#NSTEMI:
-Continue metoprolol, aspirin, high dose, high potency statin.
-Nice response to Lasix /
-Encouraged incentive spirometry
#HLD: High dose, high potency statin.
#Palpitations/PAC's: Continue metoprolol
#Rheumatoid arthritis:.
#GERD:
Subjective/Interval History:
No LOPEZ. No pain or palps
DATA:
Cardiac catheterization, 10/25/2023:
CORONARY ANGIOGRAPHY
Dominance: Right
Left Main: Normal
LAD: 90% ostial LAD stenosis with the angiographic appearance of thrombus. There is RAKESH grade III flow in the LAD. The mid LAD has 60% stenosis just distal to D3. The distal LAD has 40-50% stenosis spanning D4 takeoff
Circumflex: Trivial luminal irregularities
RCA: Dominant vessel with 20% mid stenosis and otherwise trivial luminal irregularities in the RCA proper. The medium to large PDA has 30% ostial stenosis.
CONCLUSIONS
1: Systemic hypertension
2: Normal left ventricular function with EF 67%
3. Severe single-vessel LAD disease as described. The culprit for her ACS is clearly the ostial LAD lesion. This lesion is quite unfavorable for PCI which would require stenting back into the left main across the origin of the circumflex.
Furthermore there is a borderline significant lesion in the mid LAD.
4. Recommend CT surgical consultation for inpatient CABG x 2 (LAD, D3)
TTE, 10/24/2023:
CONCLUSIONS
Normal left ventricular size, wall thickness and systolic function. No regional
wall motion abnormalities are seen. LV ejection fraction is 55-60% by
volumetric assessment. Stage I diastolic dysfunction suggestive of abnormal
relaxation.
Normal right ventricular size and function.
Mild mitral regurgitation.
Compared to prior from January 14, 2017, no significant change.
Physical Exam
Vital Signs/Labs
Vital Signs
Temp Pulse Resp BP Pulse Ox
36.7 C 93 16 114/71 96
11/01/23 07:58 11/01/23 08:00 11/01/23 07:58 11/01/23 07:58 11/01/23 08:04
10/31/23 11/01/23 11/02/23
06:59 06:59 06:59
Actual Weight 162 lb 11.218 oz 159 lb 13.362 oz
11/01/23 04:47
11/01/23 04:47
PT 14.7 Sec (11.4-14.6) H 10/29/23 03:17
INR 1.17 10/29/23 03:17
APTT 33.8 Sec (23.4-35.0) 10/28/23 10:44
Magnesium 2.5 mg/dl (1.6-2.3) H 11/01/23 04:47
Triglycerides 128 mg/dl (10-149) 10/26/23 01:05
LDL Cholesterol, Calc 47 mg/dl 10/26/23 01:05
VLDL Cholesterol, Calc 25 mg/dl (0-30) 10/26/23 01:05
HDL Cholesterol 90 mg/dl 10/26/23 01:05
Data Reviewed
-
Date of Service: November 01, 2023
EKG: Other (tele OK)
--- NOTE | 2023-11-01 08:30 | PTCARENOTE ---
Epicardial v-wire cut with 2 RNs. Pt tolerated. Old chest tube dressing d/c, sites approximated with no drainage. Pt assisted to shower, tolerated well.
--- NOTE | 2023-11-01 09:00 | W.DCSUMMARY ---
Discharge Summary
Discharge Data
Date of Admission: 10/24/23
Date of Discharge: 11/01/23
-
Pending Results: No
Hospital Course
Primary care physician: Cecille Sampson
Outpatient burial vault maker: none
Inpatient consultants: [facility] (Leoncio Kevin)
Procedures:
1. CABG x 2
Primary Diagnosis:
1. NSTEMI
Secondary Diagnoses:
1. Hypertension
2. Hyperlipidemia
3. GERD
4. Rheumatoid arthritis
5. Prediabetes (hgb A1C 5.7)
6. History of palpitations
7. Acute surgical blood loss anemia-expected
8. Postop acute pericarditis
9. Acute postop R apical pneumothorax
10. post-op urinary retention
HPI: 78-year-old female was admitted 10/25/2023 with chest pain and ruled in for non-STEMI.
Hospital course: Patient was started on aspirin and IV heparin infusion. She was taken to the cardiac [facility] and found to have critical ostial left anterior descending coronary artery disease. CT surgery was consulted for surgical evaluation.On
10/28/2023 patient underwent CABG x 2 (HOWARD to LAD and sequenced to diagonal) and left atrial appendage #40 mm clip (d/t history of palpitations) with Dr. Mccarty. Intraoperative CALI reported an ejection fraction of 55-60%. Patient returned to
[facility] on Levophed which was quickly weaned off. Patient was extubated at 1530 the day of surgery. Postoperative day #1, mediastinal chest tube and Rivera were discontinued. Aspirin Plavix were initiated. Plavix will continue for 1 year due to
NSTEMI. On postoperative day #2, the pleural chest tube was discontinued and patient was straight cathed for urinary retention. Patient was noted to have a 10% right apical pneumo which remained unchanged on subsequent films. Temporary epicardial
pacing wires were clipped to skin level. Patient ambulated well with cardiac rehab and deemed stable for discharge to home on 11/01/23.
Home medication changes:
New Meds:
Aspirin 81 mg daily
Clopidogrel 75 mg daily
Gabapentin 100 mg 3 times daily for 10 days
Toprol XL 25 mg daily
Oxycodone 5 mg every 4 hours as needed
Protonix 40 mg daily
Rosuvastatin 40 mg daily
stop following meds:
Cinnamon bark
Curcumin
Pepcid
Ibuprofen
Toprol XL 50 mg changed to 25 mg postop
Omeprazole 20 mg changed to Protonix while on Plavix
Silver Hydrocil
Simvastatin changed to rosuvastatin as on amnio
Discharge Plan
-
Patient Disposition: Home (Routine Discharge)
Discharge Diagnosis/Procedures: CABG
Condition: Good
Diet: Low Cholesterol and Low Sodium
Activity: No strenuous activity
Driving Restrictions: Not until seen by your Dr
Bathing Restrictions: OK to Shower
Other Services: Cardiac Rehab
Specialty Instructions: Weigh Daily- Call MD for wt gain/loss 3 lbs overnight/5 lbs in 1 week
Stand Alone Forms: DC Instructions- Cath/EP Lab
Referrals:
CT Transitional Care Nurse [Outside] - in one to two days
(
The Cardiothoracic Transitional Care Nurse will call you to set up a visit in 1-2 days.)
[facility] [Outside] - 12/03/23 1:00 pm
(Cardiac Rehab Orientation appointment is on Saturday12/03/23 at 1PM
The Cardiac Rehab gym is located on the first floor of the [facility].)
Vladimir Mccarty MD [Active] - 12/02/23 9:45 am
Cecille Sampson DO [Family Provider] - in four to six weeks (Please make an appointment in four to six weeks. )
Princess Knight CRNP [Specified Professional Personl] - 12/11/23 10:40 am
Prescriptions:
New
clopidogrel 75 mg Tablet
75 mg PO DAILY Qty: 30 2RF
metoprolol succinate 25 mg Tablet Extended Release 24 Hr
25 mg PO DAILY Qty: 30 1RF
rosuvastatin 40 mg Tablet
40 mg PO QPM Qty: 30 1RF
aspirin [Children's Aspirin] 81 mg Tablet,Chewable
81 mg PO DAILY Qty: 0 0RF
acetaminophen 325 mg Tablet
650 mg PO Q4HPRN PRN (Reason: mild pain,headache,temp >101F ) Qty: 0 0RF
gabapentin 100 mg Capsule
100 mg PO TID Qty: 30 0RF
pantoprazole 40 mg Tablet,Delayed Release (Dr/Ec)
40 mg PO DAILY Qty: 30 2RF
oxycodone 5 mg Tablet
5 mg PO Q4HPRN PRN (Reason: severe pain) Qty: 20 0RF
Continued
hydroxychloroquine 200 MG tablet
200 mg PO DAILY
Modena-3 Plus Vitamin D3 1 EACH capsule,delayed release(DR/EC)
2,000 mg PO BID
Discontinued
ibuprofen 200 MG tablet
200 mg PO BIDPRN PRN (Reason: mild pain)
cinnamon bark [Cinnamon] 500 MG capsule
1,000 mg PO DAILY
Curcumin
750 mg PO DAILY
Silver Hydrosol
1 cap PO DAILY
metoprolol succinate [Toprol XL] 50 mg Tablet Extended Release 24 Hr
50 mg PO DAILY
famotidine [Pepcid] 20 mg Tablet
20 mg PO BID
omeprazole 20 mg Tablet,Delayed Release (Dr/Ec)
20 mg PO DAILY
simvastatin 20 MG tablet
20 mg PO DAILY
Discharge Orders:
Discharge Patient (As Directed); Ordered 11/01/23
Ordered By: Robyn Sapp
Care Plan Goals
Care Plan Goals:
Problem: Readiness for enhanced knowledge related to diagnosis and treatment plan
Goal: Understand your diagnosis and treatment plan needs, including medications if applicable.
Instructions: Know your diagnosis, underlying causes and treatment plan options, including medications if applicable. Consult with your health care team to learn about your diagnosis and treatment plan, including medications if applicable.
Discharge Date and Time
Print Language: STATELESS
[2023-11-01 09:12] VITALS: BP 117/70; BP 152/70; PULSE 84; O2SAT 97
--- NOTE | 2023-11-01 10:20 | PTCARENOTE ---
Pt's daughter at bedside for discharge. PIV d/c. Discharge instructions reviewed. All belongings returned to patient. Pt stable prior to discharge. All questions answered.
== END 2023-11-01 10:26 | disposition home or self-care (01) | DRG 234 ==
LOC: CVICU 16:57
PROVIDERS: Anesthesiology; Clinical Nurse Specialist Acute Care; Family Medicine; Internal Medicine Cardiovascular Disease; Nurse Practitioner; Nurse Practitioner Adult Health; Nurse Practitioner Family; ADMITTING PHYSICIAN Internal Medicine; ATTENDING PHYSICIAN Thoracic Surgery (Cardiothoracic Vascular Surgery); CONSULT PHYSICIAN Internal Medicine Cardiovascular Disease; CONSULT PHYSICIAN Internal Medicine Critical Care Medicine; EMERGENCY PHYSICIAN Emergency Medicine; FAMILY PHYSICIAN Family Medicine
PROC: 4A023N7 Measurement of Cardiac Sampling and Pressure, Left Heart, Percutaneous Approach (ICD-10-PCS; 2023-10-25)
PROC: B2151ZZ Fluoroscopy of Left Heart using Low Osmolar Contrast (ICD-10-PCS; 2023-10-25)
PROC: B2111ZZ Fluoroscopy of Multiple Coronary Arteries using Low Osmolar Contrast (ICD-10-PCS; 2023-10-25)
PROC: 02L70CK Occlusion of Left Atrial Appendage with Extraluminal Device, Open Approach (ICD-10-PCS; 2023-10-28)
PROC: 02110Z9 Bypass Coronary Artery, Two Arteries from Left Internal Mammary, Open Approach (ICD-10-PCS; 2023-10-28)
PROC: B24BZZ4 Ultrasonography of Heart with Aorta, Transesophageal (ICD-10-PCS; 2023-10-28)
PROC: 5A1221Z Performance of Cardiac Output, Continuous (ICD-10-PCS; 2023-10-28)
DX: I21.4 Non-ST elevation (NSTEMI) myocardial infarction (principal); D62 Acute posthemorrhagic anemia; J93.83 Other pneumothorax; I30.9 Acute pericarditis, unspecified; E87.1 Hypo-osmolality and hyponatremia; J98.11 Atelectasis; I25.10 Atherosclerotic heart disease of native coronary artery without angina pectoris; I10 Essential (primary) hypertension; E78.00 Pure hypercholesterolemia, unspecified; K21.9 Gastro-esophageal reflux disease without esophagitis; M06.9 Rheumatoid arthritis, unspecified; I70.0 Atherosclerosis of aorta; I34.0 Nonrheumatic mitral (valve) insufficiency; R73.03 Prediabetes; R33.9 Retention of urine, unspecified; Z79.82 Long term (current) use of aspirin; Z79.02 Long term (current) use of antithrombotics/antiplatelets
CPT/HCPCS: 71045; 71046; 80048; 80053; 80061; 81003; 82330; 82565; 82805; 82947; 82962; 83036; 83690; 83735; 84132; 84302; 84484; 84520; 85014; 85018; 85025; 85027; 85049; 85610; 85730; 86850; 86900; 86901; 86920; 93005; 93306; 93312; 93320; 93325; 93458; 93880; 94002; 96374; 99285; C1894; P9045; P9047; Q9967

== ENCOUNTER 2023-12-25 09:46 | Outpatient (RCR) | payer OTHER, SELFPAY | END 2023-12-25 23:59 | disposition home or self-care (01) | LOC: CRHB 09:46 | PROVIDERS: ATTENDING PHYSICIAN Internal Medicine Cardiovascular Disease | DX: I25.10 Atherosclerotic heart disease of native coronary artery without angina pectoris (principal); Z95.1 Presence of aortocoronary bypass graft; I25.2 Old myocardial infarction | CPT/HCPCS: G0422; G0423 ==

== ENCOUNTER → 2024-01-22 07:58 | Outpatient (REF) | payer OTHER, SELFPAY ==
[2024-01-22 11:10] LABS: ALT (SGPT) 30 U/L (0-35); AST (SGOT) 40 U/L (14-36); HDL Cholesterol 85 mg/dl; LDL Cholesterol, Calculated 46 mg/dl; Total Cholesterol 154 mg/dl (50-199); Triglyceride 116 mg/dl (10-149); Very Low Density Lipoprotein 23 mg/dl (0-30)
== END ==
LOC: REG 07:58
PROVIDERS: ATTENDING PHYSICIAN Nurse Practitioner
DX: E78.5 Hyperlipidemia, unspecified (principal)
CPT/HCPCS: 36415; 80061; 84450; 84460

== ENCOUNTER 2024-01-29 09:00 | Outpatient (RCR) | payer OTHER, SELFPAY | END 2024-01-29 23:59 | disposition home or self-care (01) | LOC: CRHB 09:00 | PROVIDERS: ATTENDING PHYSICIAN Internal Medicine Cardiovascular Disease | DX: I25.10 Atherosclerotic heart disease of native coronary artery without angina pectoris (principal); Z95.1 Presence of aortocoronary bypass graft; I25.2 Old myocardial infarction | CPT/HCPCS: G0422; G0423 ==

== ENCOUNTER → 2024-07-21 06:57 | Outpatient (REF) | payer OTHER, SELFPAY | LOC: RAD 06:57 | PROVIDERS: ATTENDING PHYSICIAN Nurse Practitioner Family | DX: R09.89 Other specified symptoms and signs involving the circulatory and respiratory systems (principal); G62.9 Polyneuropathy, unspecified | CPT/HCPCS: 93922; 93925 ==

== ENCOUNTER 2024-09-06 08:43 | Emergency (ER) | payer OTHER, SELFPAY ==
[2024-09-06 08:47] VITALS: BP 174/88
--- NOTE | 2024-09-06 10:28 | ED.GENMED ---
History of Present Illness
General
Chief Complaint: Musculo-Skeletal Complaint
Time Seen by Provider: 09/06/24 09:04
History of Present Illness
History of Present Illness:
79-year-old female presents to the emergency department for evaluation of left shoulder pain that has been persistent for the past week. She saw her primary care physician for this and was prescribed oral prednisone. She states this is not
helping. Denies any injuries, the shoulder is free ofPain when not moving. No Distal paresthesias. No chest pain or shortness of breath
Past History
Past History
ED Past Medical History: GERD, HTN, Hypercholesterolemia and Other (Rheumatoid arthritis)
Social History
Tobacco: Non-smoker
Review of Systems
Review of Systems
Allergies reviewed?: Yes
All Other Systems: ROS reviewed and negative except as documented in HPI and ROS
Phy Exam
Physical Exam
Physical Exam:
GEN: Well appearing, NAD, WDWN
HEENT: Oral mucosa moist, no scleral icterus
Cardiac: Regular rate
Lung: No respiratory distress, no tachypnea
MSK: No gross deformity or injuries. Passive range of motion of the left shoulder is relatively pain-free and fully intact, no crepitus, active range of motion with substantial degree of pain
Skin: Good color, no pallor or jaundice, no rashes
Neuro: AO x3, moves all extremities freely
Psych: Calm, cooperative
Course
Orders/Labs/Results
Orders:
Orders
09/06/24 10:10
CR Shoulder - Left Min 2 View* Urgent
Comment:
Reason For Exam: non traumatic pain
09/06/24 10:39
Triamcinolone Acetonide [Kenalog-10] 5 mg INTRAARTIC NOW STA
Vital Signs
Initial and Last Documented VS:
Initial Vital Signs
Temp Pulse Resp BP Pulse Ox
98.2 F 87 16 174/88 98
09/06/24 08:47 09/06/24 08:47 09/06/24 08:47 09/06/24 08:47 09/06/24 08:47
Last Documented Vital Signs
Temp Pulse Resp BP Pulse Ox
98.2 F 87 16 174/88 98
09/06/24 08:47 09/06/24 08:47 09/06/24 08:47 09/06/24 08:47 09/06/24 08:47
MDM/Problems Addressed
MDM/Problems Addressed:
Given the patient's pain was not resolved with oral steroids and we are limited with NSAID usage due to her use of antiplatelets, a intra-articular Kenalog injection was performed and the patient is advised to stop prednisone. Recommend outpatient
orthopedic follow-up. X-ray showed no evidence of acute process
*Critical Care Note
Total Time (30-74mins, 75-104mins- exclusive of procedures): Not Applicable
ED Attending Note
-
Portions of this chart may have been created with voice recognition software.� Occasional wrong word or��sound alike� substitutions may have occurred due to the inherent limitations of voice recognition software.
Discharge Plan
Departure
Patient Disposition: Home (Routine Discharge)
Date of Disposition: 09/06/24
Time of Disposition: 11:06
Patient with high blood pressure during this ER visit?: Yes
Discharge Problem:
Acute pain of left shoulder
Instructions: Calcific Tendinopathy of the Shoulder (DC)
Prescriptions:
No Action
hydroxychloroquine 200 MG tablet
200 mg PO DAILY
[place]-3 Plus Vitamin D3 1 EACH capsule,delayed release(DR/EC)
2,000 mg PO BID
clopidogrel 75 mg Tablet
75 mg PO DAILY Qty: 30 2RF
metoprolol succinate 25 mg Tablet Extended Release 24 Hr
25 mg PO DAILY Qty: 30 1RF
rosuvastatin 40 mg Tablet
40 mg PO QPM Qty: 30 1RF
aspirin [Children's Aspirin] 81 mg Tablet,Chewable
81 mg PO DAILY Qty: 0 0RF
acetaminophen 325 mg Tablet
650 mg PO Q4HPRN PRN (Reason: mild pain,headache,temp >101F ) Qty: 0 0RF
gabapentin 100 mg Capsule
100 mg PO TID Qty: 30 0RF
pantoprazole 40 mg Tablet,Delayed Release (Dr/Ec)
40 mg PO DAILY Qty: 30 2RF
oxycodone 5 mg Tablet
5 mg PO Q4HPRN PRN (Reason: severe pain) Qty: 20 0RF
Referrals:
Willy Pelaez MD [Active] - Call in 1-3 days for appt
Cecille Sampson DO [Family Provider] -
Interventions
Interventions:
*Risk Screen - Suicide Last Done: 09/06/24 10:05
*General Assessment Last Done: 09/06/24 10:05
*Neglect/Abuse Screening Last Done: 09/06/24 10:05
*ED- Fall Risk Assessment Last Done: 09/06/24 10:05
*ED COVID-19 Vaccine History Last Done: 09/06/24 10:05
*Nursing Disposition Last Done: 09/06/24 11:10
ED-Musculoskeletal Assessment Last Done: 09/06/24 10:04
Discharge Date and Time
Discharge Date/Time: 09/06/24 11:10
Print Language: HEBREW
[2024-09-06] MEDS: KENALOG-10 5 MG INTRAARTIC (10:52)
== END 2024-09-06 11:10 | disposition home or self-care (01) ==
LOC: EMR 08:43
PROVIDERS: EMERGENCY PHYSICIAN Emergency Medicine; FAMILY PHYSICIAN Family Medicine
DX: M25.512 Pain in left shoulder (principal); I10 Essential (primary) hypertension; E78.00 Pure hypercholesterolemia, unspecified; K21.9 Gastro-esophageal reflux disease without esophagitis; M06.9 Rheumatoid arthritis, unspecified; Z79.02 Long term (current) use of antithrombotics/antiplatelets; Z91.048 Other nonmedicinal substance allergy status
CPT/HCPCS: 99284; 96374; 73030

== ENCOUNTER → 2024-10-09 07:06 | Outpatient (REF) | payer OTHER, SELFPAY | LOC: MRI 3T 07:06 | PROVIDERS: ATTENDING PHYSICIAN Orthopaedic Surgery | DX: M25.512 Pain in left shoulder (principal) | CPT/HCPCS: 73221 ==

== ENCOUNTER → 2024-12-10 11:32 | Outpatient (REF) | payer OTHER, SELFPAY | LOC: RAD 11:32 | PROVIDERS: ATTENDING PHYSICIAN Physician Assistant | DX: R53.83 Other fatigue (principal); R05.3 Chronic cough | CPT/HCPCS: 71046 ==

== ENCOUNTER → 2024-12-31 08:38 | Outpatient (REF) | payer OTHER, SELFPAY | LOC: RAD 08:38 | PROVIDERS: ATTENDING PHYSICIAN Hospitalist; FAMILY PHYSICIAN Family Medicine | DX: M81.0 Age-related osteoporosis without current pathological fracture (principal) | CPT/HCPCS: 77080 ==

== ENCOUNTER → 2025-02-17 12:49 | Outpatient (REF) | payer OTHER, SELFPAY | LOC: EMG 12:49 | PROVIDERS: ATTENDING PHYSICIAN Physician Assistant | DX: R20.2 Paresthesia of skin (principal); R20.0 Anesthesia of skin | CPT/HCPCS: 95886; 95910 ==